=== PATIENT | male | born 1940 | race Caucasian/White ===

== ENCOUNTER → 2016-10-11 | Outpatient (CLI) | payer OTHER | LOC: MMPC 11:11 | PROVIDERS: ATTEND Nurse Practitioner | DX: J44.1 Chronic obstructive pulmonary disease with (acute) exacerbation (principal) | CPT/HCPCS: 99214 ==

== ENCOUNTER 2016-10-17 08:00 | Inpatient (IN) | payer OTHER ==
[2016-10-17] MEDS ORDERED: NORMAL SALINE 10 ML SYRINGE FLUSH IVP PRN ×2 (08:08→11:24)
[2016-10-17] MEDS ORDERED: Sodium Chloride 0.9% 1,000 ML PRIMARY IV ONE (08:08)
[2016-10-17] MEDS ORDERED: IPRATROPIUM/ALBUTEROL SULFATE 3 ML NEB NEB ONE ×2 (08:10)
--- NOTE | 2016-10-17 08:22 | PDOC ---
General Adult HPI - General Chief Complaint: Respiratory Complaint Stated Complaint: DYSPNEA, CONFUSION Date Seen by Provider: 10/17/16 Time Seen by Provider: 08:02 Source: POSITIVE: Patient Exam Limitations: POSITIVE: Clinical condition Nurse's Notes Reviewed & Considered: Yes - History of Present Illness Initial Comment: The patient is a 76-year-old male who is brought to the emergency department by his friend with complaints of increased shortness of breath and confusion. Apparently he was at coffee with his friend when he developed increased shortness of breath and seemed confused. His friend subsequently brought him here to the emergency room. The patient denies any current headache or chest pain. He is having shortness of breath. He also is shaking. He denies any history of diabetes or heart problems. He tells me that he does not take any medications however in the computer lists prednisone and cholesterol medication as well as some other supplements. He does report being on oxygen at home generally at 2 L. He does have a history of COPD. His arrived she provided further history. She stated that he did develop upper respiratory symptoms over a week ago. He was prescribed Zithromax and prednisone however he never take any of this medication. He stated that he felt like he was getting better reports for the past several days that he is really not gotten out of bed much. He did go to breakfast this morning and subsequently ended up here in the emergency room. His reports that he has had pneumonia previously in the past with very similar presentation as today with increased confusion, fever and low oxygen. Have you received a tetanus shot in the past 10 years?: No - Patient Home Medications Home Medications: Home Medications Mv-Mn/FA/Lycop/[place] 3,6,9 #3 [Men's 50+ Advanced Multivit Cp] 1 each PO DAILY tab 12/13/11 Ascorbic Acid [Vitamin C] 1 tab PO DAILY 03/02/13 Ipratropium/Albuterol Sulfate [Duoneb 2.5-0.5 Mg/3 Ml Soln] 3 ml NEB QID ml 04/07 [place]-3 Fatty Acids/Fish Oil [Fish Oil 1,000 Mg Softgel] 1 cap PO DAILY Oxygen (O2) 3 l NASAL continous #3 unit 03/02/13 Vitamin B Complex [B Complex] 1 tab PO DAILY 03/02/13 Fenofibrate Nanocrystallized [Tricor] 48 mg ORAL QD #90 tab 07/12/16 Ferrous Gluconate 1 tab PO BID #180 tab 07/12/16 Hydrochlorothiazide 1 cap PO DAILY PRN #90 cap 07/12/16 Levalbuterol Tartrate [Xopenex Hfa] 2 puff INH Q4-6H #3 puff 07/12/16 Pravastatin Sodium [Pravachol] 1 tab PO QHS #90 tab 07/12/16 Fluticasone/Vilanterol [Breo Ellipta 200-25 Mcg Inh] Sample #3 10/11/16 Umeclidinium [place] [Incruse Ellipta] Sample #4 10/11/16 - Patient Allergies Allergies/Adverse Reactions: Allergies Allergy/AdvReac Type Severity Reaction Status Date / Time testosterone AdvReac NOT Verified 10/17/16 08:13 APPLICABLE Past Medical History - heen HEENT History: Cataracts Additional HEENT History: NO TEETH Cardiovascular History: Hypertension, Hyperlipidemia Respiratory History: COPD, Sleep Apnea Gastrointestinal History: Denies History Additional Gastrointestinal History: COLON POLYPS/ HEMORRHOIDS Genitourinary History: Denies History Additional Genitourinary History: Prostate CA Endocrine History: Denies History Musculoskeletal History: Denies History Prosthesis or Implant: No Neurological History: Denies History Blood Disorders: Denies History Additional Blood Disorders History: POLYCYTHEMIA Psychiatric History: Denies History History of Sexually Transmitted Diseases: No Cancer History: Other (please comment) Cancer Treatment / Date(s) of Treatment: SURGERY History of MDRO: No History of Other Communicable Diseases: No Alcohol Use: None Substance Use Type: None Previous Surgical History: Yes Type / Date of Surgery: RADICAL PROSTATECTOMY/ RIGHT CATARACT Anesthesia Reactions: No Malignant Hyperthermia: No Significant Family History: No pertinent family hx Past Medical History Reviewed: Reviewed - No Changes ROS - Limitations ROS Limitations: Clinical Condition (Patient is awake and answers questions, he is having difficult time breathing and is somewhat confused limiting his ability to answer questions) Constitution: REPORTS: Chills Cardiovascular: DENIES: Chest Pain, Heart Palpitations, Edema Respiratory: REPORTS: Shortness Of Breath, Other (He denies cough) Neurological: REPORTS: Confusion. DENIES: Headache, Numbness, Weakness Gastrointestinal: REPORTS: Denies GI Symptoms Musculoskeletal: REPORTS: Denies MS Symptoms Eyes: REPORTS: Denies Symptoms ENT: REPORTS: Denies Symptoms Skin: DENIES: Rash General Adult Exam - General Appearance General Appearance: POSITIVE: Other (The patient is awake, he does have diffuse tremor and shaking of his upper extremities, he is somewhat confused) - HEENT HEENT: POSITIVE: Head Inspection Nml, Eyes Inspection Nml, Ears Inspection Nml, Oral/Dental Inspect. Nml, Pharynx Inspect. Nml - Neck Neck: POSITIVE: Normal Inspection. NEGATIVE: Lymphadenopathy - Respiratory Respiratory: POSITIVE: Other (He does have diminished breath sounds with tachypnea and rhonchi bilaterally, some pursed lipped breathing) - Cardiovascular Cardiovascular: POSITIVE: Regular Rate & Rhythm, No Murmur Peripheral Pulses: Dorsalis-pedis (R): 2+, Dorsalis-pedis (L): 2+ - Abdomen Abdomen: Soft: (All Quadrants), Denies Tenderness: (All Quadrants), No Distention: (All Quadrants) - Back Back: POSITIVE: Normal Inspection - Skin Skin: POSITIVE: Normal Color, No Rash - Extremities Extremity: Normal ROM: (All Extremities), Normal Inspection: (All Extremities) - Neurological / Psychological Neurological: POSITIVE: Other (No focal neurologic deficit) General Adult Progress - Results Reviewed by me Xrays/CTs/US Reviewed by me: Yes Discussed with Radiologist: Yes Radiology Findings: CT scan of his head is normal per radiologist. CT PE protocol reveals a right lower lobe a trace PE, he does have a right-sided parahilar lymph node that is enlarged which is most likely reactive however ingested recommend follow-up. Lab Results Reviewed: Yes Lab Results:: Laboratory Results 10/17/16 10/17/16 Range/Units 08:20 08:46 WBC 12.56 H (4.8-10.8) 10^3/uL RBC 4.63 L (4.70-6.10) 10^6/uL Hgb 13.1 L (14.0-18.0) g/dL Hct 41.6 L (42.0-52.0) % MCV 89.8 (80-90) FL MCH 28.3 (27-31) PG MCHC 31.5 L (33-37) g/dL RDW Std Deviation 44.1 (39-50) fL RDW Coeff of Vamshi 13.9 (11.5-14.5) % Plt Count 270 (140-350) 10*3/uL MPV 9.6 (7.4-12.2) FL Immature Gran % (Auto) 0.2 (0-5) % Neut % (Auto) 77.1 (50-80) % Lymph % (Auto) 13.6 (10-50) % [place] % (Auto) 7.8 (5-15) % Eos % (Auto) 1.1 (0-8) % Baso % (Auto) 0.2 (0-1) % Immature Gran # (Auto) 0.03 10*3/UL Neut # (Auto) 9.68 10*3/UL Lymph # (Auto) 1.71 10*3/uL [place] # (Auto) 0.98 H (0.3-0.8) 10*3/UL Eos # (Auto) 0.14 10*3/UL Baso # (Auto) 0.02 10*3/UL WBC Morphology Comment Normal morphology (NORM) Plt Morphology Comment Normal morphology (NORM) RBC Morph Comment Normal morphology (NORM) D-Dimer 0.95 H (0.00-0.59) mg/L VBG pH 7.36 (7.32-7.42) VBG pCO2 57 H (45-55) mmHg VBG HCO3 32 H (22-26) mmol/L VBG Base Excess 7 H (-2-2) MMOL/L Sodium 138 (135-145) meq/L Potassium 5.1 (3.8-5.2) meq/L Chloride 96 L (98-112) meq/L Carbon Dioxide 32 (23-33) meq/L Anion Gap 10 (5-20) BUN 27 H (7-22) mg/dL Creatinine 1.2 (0.70-1.50) mg/dL Estimated GFR (>60 ml/min/1.73m(2)) BUN/Creatinine Ratio 22.50 H (6-20) Glucose 137 H (78-110) mg/dL Calculated Osmolality 292.0 (267-292) mOsm/kg Lactic Acid 1.3 (0.70-2.10) MMOL/L Calcium 9.1 (8.7-10.7) mg/dL Magnesium 1.9 (1.6-2.4) mg/dL Total Bilirubin 0.7 (0.3-1.2) mg/dL AST 19 L (21-57) IU/L ALT 37 (21-72) IU/L Alkaline Phosphatase 84 (38-126) IU/L Troponin I < 0.012 (< 0.040) ng/mL C-Reactive Protein 3.0 H (0.0-0.9) mg/dL Total Protein 7.7 (6.1-8.0) g/dL Albumin 4.3 (3.5-4.8) g/dL Globulin 3.4 (2.50-4.10) g/dL Albumin/Globulin Ratio 1.20 L (1.3-2.0) mg/g Serum Alcohol < 10 (0-10) mg/dL - Patient's Progress MDM / ED Course: The patient was initially hypoxic in the low 80s on his 2 L of oxygen. He was turned up on the nasal cannula and did not seem to improve. He was subsequently placed on a nonrebreather and was still only in the mid-80s. He was given a DuoNeb which improved his oxygen saturations into the mid 90s. IV was established and blood cultures, lactate and venous blood gas were drawn with IV start. He was febrile on arrival and was given Tylenol. He was unable to take oral Tylenol and was given an ulcer and fibula IV. His repeat temperature was actually higher at 102.8. Patient however was actually more awake and less shaky and answering questions more poorly. Because of his confusion a head CT was done which was negative. His initial chest x-ray did not show any obvious infiltrate however CT PE protocol done secondary to elevated d-dimer shows a right lobe infiltrate consistent with pneumonia. Was given Rocephin 2 g and Zithromax 500 mg IV. In addition he was given Toradol 15 IV for fever. Did discuss these findings with the patient and spoke with Dr Feliciano who has agreed to admit the patient for further treatment. - Consult Counseled: POSITIVE: Patient, Family, RE: Lab Results, RE: Radiology Results, RE : DX Patient Care Time - Estimated PCT Patient Care Time (In Minutes): 45 Vital Signs - Recent Vital Signs Vital Signs: Vital Signs (Last 8 hours) Temp Pulse Resp BP Pulse Ox 10/17/16 10:14 102.8 F H 105 H 27 H 142/64 95 10/17/16 08:00 100.1 F H 119 H 32 H 134/39 74 - VS Reviewed Vital Signs Reviewed: Yes Discharge Clinical Impression: Pneumonia Discharge Disposition: Admit to Inpatient Condition: Fair Date Decision to Admit to Inpatient: 10/17/16 Time Decision to Admit to Inpatient: 10:25
[2016-10-17] MEDS: ACETAMINOPHEN 325 MG TABLET PO ONE ×2 (08:25→08:57)
--- NOTE | 2016-10-17 08:43 | EKG ---
[address] [place] [id number] Measurements Intervals [place] Rate: 113 P: NM: 0 QRS: 28 QRSD: 84 T: 75 QT: 285 QTc: 352 Interpretive Statements SUPRAVENTRICULAR TACHYCARDIA Some baseline interference compromises reading but P waves are variable shaped despite regular narrow complex rhythm ABNORMAL RHYTHM ECG Compared to ECG 04/28/2013 18:03:09 Sinus tachycardia no longer present Electronically Signed On 10-17-16 13:43:58 MST by Mike Mccarthy MD [email or web address]
[2016-10-17 08:48] LABS: BASOPHILS # (AUTO) 0.02 10*3/UL; BASOPHILS % (AUTO) 0.2 % (0-1); EOSINOPHILS % (AUTO) 1.1 % (0-8); HEMATOCRIT 41.6 % (42.0-52.0); HEMOGLOBIN 13.1 g/dL (14.0-18.0); IMM GRAN % (AUTO) 0.2 % (0-5); IMM GRAN# (AUTO) 0.03 10*3/UL; LYMPHOCYTES # (AUTO) 1.71 10*3/uL; LYMPHOCYTES % (AUTO) 13.6 % (10-50); MEAN CORPUSCULAR HEMOGLOBIN 28.3 PG (27-31); MEAN CORPUSCULAR HGB CONC 31.5 g/dL (33-37); MEAN PLATELET VOLUME 9.6 FL (7.4-12.2); MONOCYTES # (AUTO) 0.98 10*3/UL (0.3-0.8); MONOCYTES % (AUTO) 7.8 % (5-15); NEUTROPHILS # (AUTO) 9.68 10*3/UL; NEUTROPHILS % (AUTO) 77.1 % (50-80); RDW COEFFICIENT OF VARIATION 13.9 % (11.5-14.5); RED BLOOD COUNT 4.63 10^6/uL (4.70-6.10); WHITE BLOOD COUNT 12.56 10^3/uL (4.8-10.8)
[2016-10-17 08:56] LABS: PLATELET MORPHOLOGY COMMENT NORMAL MORPHOLOGY (NORM)
[2016-10-17 08:58] LABS: ASPARTATE AMINO TRANSFERASE 19 IU/L (21-57); BILIRUBIN,TOTAL 0.7 mg/dL (0.3-1.2); BLOOD UREA NITROGEN 27 mg/dL (7-22); CALCIUM 9.1 mg/dL (8.7-10.7); CHLORIDE 96 meq/L (98-112); CREATININE 1.2 mg/dL (0.70-1.50); GLUCOSE 137 mg/dL (78-110); LACTATE 1.3 MMOL/L (0.70-2.10); MAGNESIUM 1.9 mg/dL (1.6-2.4); POTASSIUM 5.1 meq/L (3.8-5.2); SODIUM 138 meq/L (135-145); TOTAL PROTEIN 7.7 g/dL (6.1-8.0)
[2016-10-17 09:01] LABS: SERUM ALCOHOL < 10 mg/dL (0-10)
[2016-10-17] MEDS ORDERED: ACETAMINOPHEN IV ONE (09:05)
--- NOTE | 2016-10-17 09:44 | DI ---
XR CXR 1VW,10/17/2016 8:22 AM: Clinical History: Hypoxia. Previous Exam: None at this facility. Findings: 2 views of the chest are obtained, and demonstrate airspace disease within the right lower lobe. There is no evidence of pleural effusion. There are some degenerative changes of the acromioclavicular joints. The cardiomediastinum is unremarkable. Impression: Airspace disease within the right lower lung base most consistent with a right lower lobe pneumonia.
[2016-10-17] MEDS ORDERED: cefTRIAXone Inj 2 GM in Sodium Chloride 0.9% 100 ML IV ONE (10:17)
[2016-10-17] MEDS ORDERED: KETOROLAC 15 MG/1 ML VIAL IVP ONE (10:17)
--- NOTE | 2016-10-17 10:34 | DI ---
CT HEAD SCAN WITHOUT IV CONTRAST, 10/17/2016 9:01 AM : Clinical History: Mental status changes. Previous Exam: None at this facility. Scans are obtained from the foramen magnum to the vertex without IV contrast. The 4th, 3rd, and lateral ventricles are of normal size, shape, position, and contour. There are no abnormal areas of increased or decreased density. There is no intracranial hemorrhage. Bone window evaluation is normal. The paranasal sinuses are normal. READING: Normal non contrast CT head scan for age.
--- NOTE | 2016-10-17 10:39 | DI ---
CT CTA CHEST NONCORONARY W/WO,10/17/2016 9:06 AM: Clinical History: Mental status changes. Previous Exam: None at this facility. Findings: Multiple helically acquired CT images are obtained through the chest following the intravenous admini stration of 75 cc of Isovue 300, and demonstrates no evidence of filling defect to suggest pulmonary embolism. There is some significant streak artifact which limits evaluation. There are some prominent pretracheal lymph nodes the largest of which measures 1.9 x 1.1 cm. There is also a large right hilar mass measuring 2.4 cm. There is airspace disease within the right lung base as well. Calcified granulomas are seen within th e liver and spleen. There is diffuse fatty infiltration of the liver. Impression: Right lower lobe pneumonia. No evidence of pulmonary embolism.
[2016-10-17] MEDS ORDERED: ONDANSETRON 4 MG/2 ML VIAL IVP PRN (11:24)
[2016-10-17] MEDS ORDERED: FENOFIBRATE NANOCRYSTALLIZED 48 MG ORAL SCH (11:24)
--- NOTE | 2016-10-17 12:41 | PDOC ---
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 His history is obtained only from him, but from his , and his friend that he drinks coffee with daily. Apparently, he was late for coffee, and when he arrived, the patient was shaking with what sounds like rigors and he was chilled. His friend took him back home, and his said that he needed to go directly to the hospital and would not even let him in the house. Upon arrival to the hospital, he was found to have a fever of greater than 102, and he was found to have a right lower lobe pneumonia. The patient was confused and disoriented, thought he was born in the 1980s, and doesn't recall any of these events earlier this morning. The patient is on about 3-4 L per nasal cannula of oxygen daily. He does breathing therapies as well. He denies any nausea or vomiting. I could not get any exacerbating factors out of the patient except as follows. He recently had a clinic visit on the , a routine follow-up visit in which the patient also complained of having a persistent cold. He was prescribed Zithromax and steroids at that visit but did not take any. He wanted to let his body try to heal this pneumonia better. He does not smoke. He got the Prevnar vaccine in the past 2 years. I was able to confirm that with clinic notes. Past Medical History Medical History: 1. COPD, normally on 3-4 L per nasal cannula oxygen, status post stem cell transplant therapy in [place]. 2. Hypertension. 3. History of prostate cancer status post radical prostatectomy. 4. Reportedly, polycythemia. 5. Obstructive sleep apnea. 6. Some skin cancers. Surgical History: Radical prostatectomy Pertinent Family History: Father of a massive myocardial infarction. The patient's mother is still alive at 96. Past Social History: Patient did smoke in the past, quit. for 33 years. This is his second marriage. Retired and lives in [place], [place]. Does not drink alcohol. Tobacco Use: Former Smoker Substance Use Type: None Alcohol Use: None Medication / Allergies Home Medications: Home Medications Medication Instructions Recorded Confirmed Type Mv-Mn/FA/Lycop/[place] 3,6,9 #3 1 each PO DAILY tab 12/13/11 10/17/16 History [Men's 50+ Advanced Multivit Cp] Ascorbic Acid [Vitamin C] 1 tab PO DAILY 03/02/13 10/17/16 History Ipratropium/Albuterol Sulfate 3 ml NEB QID ml 03/02/13 10/17/16 History [Duoneb 2.5-0.5 Mg/3 Ml Soln] [place]-3 Fatty Acids/Fish Oil [Fish 1 cap PO DAILY 03/02/13 10/17/16 History Oil 1,000 Mg Softgel] Oxygen (O2) 3 l NASAL continous #3 unit 03/02/13 02/01/14 History Vitamin B Complex [B Complex] 1 tab PO DAILY 03/02/13 10/17/16 History Fenofibrate Nanocrystallized 48 mg ORAL QD #90 tab 07/12/16 10/17/16 Clinic [Tricor] Ferrous Gluconate 1 tab PO BID #180 tab 07/12/16 10/17/16 Clinic Hydrochlorothiazide 1 cap PO DAILY PRN #90 cap 07/12/16 10/17/16 Clinic Levalbuterol Tartrate [Xopenex Hfa] 2 puff INH Q4-6H #3 puff 07/12/16 10/17/16 Clinic Pravastatin Sodium [Pravachol] 1 tab PO QHS #90 tab 07/12/16 10/17/16 Clinic Fluticasone/Vilanterol [Breo #3 10/11/16 Clinic Ellipta 200-25 Mcg Inh] Sample Umeclidinium [place] [Incruse #4 10/11/16 Clinic Ellipta] Sample Allergies/Adverse Reactions: Allergies Allergy/AdvReac Type Severity Reaction Status Date / Time testosterone AdvReac NOT Verified 10/17/16 08:13 APPLICABLE Review of Systems - Constitutional Constitutional: REPORTS: Fever/Chills, Malaise, Recent Illness - Respiratory Respiratory: REPORTS: Cough, Dyspnea At Rest, Dyspnea with Exertion, See HPI - Cardiovascular Cardiovascular: REPORTS: Negative System Review - Gastrointestinal Gastrointestinal / Abdominal: REPORTS: Negative System Review - Genitourinary Genitourinary: REPORTS: Other (History of prostate cancer.) - Musculoskeletal Musculoskeletal: REPORTS: Negative System Review - Hematlogic / Lymphatic Hematologic / Lymphatic: REPORTS: Other (History of polycythemia) - Neurological Neurologic: REPORTS: Negative System Review - Psychiatric Psychiatric: DENIES: Anhedonia, Anxiety, Depressed, Hopelessness, Hospitalization, Negative System Review, Other, Panic, Sadness, See HPI, Suicidality, Tearfullness Exam - Vitals Vital Signs: Vital Signs Temperature 102.8 F Temperature Source Temporal Artery Scan Pulse Rate 105 Respiratory Rate 24 Blood Pressure 142/64 Pulse Ox 92 Oxygen Flow Rate 8L Oxygen Delivery Method Room Air Height 5 ft 9 in Weight 220 lb 12.8 oz - General General Appearance: POSITIVE: No Acute Distress, Cooperative - Head Head Exam: POSITIVE: Normal Inspection, Normocephalic, Atraumatic - Eye Eye Exam: POSITIVE: No Scleral Icterus - ENT ENT Exam: POSITIVE: Mucous Membranes Dry - Neck Neck Exam: POSITIVE: Normal Inspection, No Tenderness, No Thyromegaly - Respiratory Respiratory Exam: POSITIVE: Breathing Non Labored, Normal to Percussion and Palpation, Decreased Breath Sounds - Cardiovascular Cardiovascular Exam: POSITIVE: RRR, No Murmur, No Clicks, No Gallops, No Rubs, No JVD - GI/Abdominal GI/Abdominal Exam: POSITIVE: Normal Bowel Sounds, Non Tender, Non Distended, Soft - Rectal Rectal Exam: POSITIVE: Deferred - External Exam: POSITIVE: Deferred Exam: POSITIVE: Deferred - Extremities Extremities Exam: POSITIVE: Normal Inspection, No Edema Present, No Cyanosis Present - Back Back Exam: POSITIVE: Normal Inspection, No CVA Tenderness - Neurological Neurological Exam: POSITIVE: Alert, Oriented x 3 - Psychiatric Psychiatric Exam: POSITIVE: Normal Affect, Normal Mood - Integumentary Integumentary Exam: POSITIVE: Normal Color, Warm, Dry, Intact Results - Labs CBC and BMP: 10/17/16 08:46 10/17/16 08:46 Labs - Last 24 Hours: Laboratory Results 10/17/16 10/17/16 Range/Units 08:20 08:46 WBC 12.56 H (4.8-10.8) 10^3/uL RBC 4.63 L (4.70-6.10) 10^6/uL Hgb 13.1 L (14.0-18.0) g/dL Hct 41.6 L (42.0-52.0) % MCV 89.8 (80-90) FL MCH 28.3 (27-31) PG MCHC 31.5 L (33-37) g/dL RDW Std Deviation 44.1 (39-50) fL RDW Coeff of Vamshi 13.9 (11.5-14.5) % Plt Count 270 (140-350) 10*3/uL MPV 9.6 (7.4-12.2) FL Immature Gran % (Auto) 0.2 (0-5) % Neut % (Auto) 77.1 (50-80) % Lymph % (Auto) 13.6 (10-50) % [place] % (Auto) 7.8 (5-15) % Eos % (Auto) 1.1 (0-8) % Baso % (Auto) 0.2 (0-1) % Immature Gran # (Auto) 0.03 10*3/UL Neut # (Auto) 9.68 10*3/UL Lymph # (Auto) 1.71 10*3/uL [place] # (Auto) 0.98 H (0.3-0.8) 10*3/UL Eos # (Auto) 0.14 10*3/UL Baso # (Auto) 0.02 10*3/UL WBC Morphology Comment Normal morphology (NORM) Plt Morphology Comment Normal morphology (NORM) RBC Morph Comment Normal morphology (NORM) D-Dimer 0.95 H (0.00-0.59) mg/L VBG pH 7.36 (7.32-7.42) VBG pCO2 57 H (45-55) mmHg VBG HCO3 32 H (22-26) mmol/L VBG Base Excess 7 H (-2-2) MMOL/L Sodium 138 (135-145) meq/L Potassium 5.1 (3.8-5.2) meq/L Chloride 96 L (98-112) meq/L Carbon Dioxide 32 (23-33) meq/L Anion Gap 10 (5-20) BUN 27 H (7-22) mg/dL Creatinine 1.2 (0.70-1.50) mg/dL Estimated GFR (>60 ml/min/1.73m(2)) BUN/Creatinine Ratio 22.50 H (6-20) Glucose 137 H (78-110) mg/dL Calculated Osmolality 292.0 (267-292) mOsm/kg Lactic Acid 1.3 (0.70-2.10) MMOL/L Calcium 9.1 (8.7-10.7) mg/dL Magnesium 1.9 (1.6-2.4) mg/dL Total Bilirubin 0.7 (0.3-1.2) mg/dL AST 19 L (21-57) IU/L ALT 37 (21-72) IU/L Alkaline Phosphatase 84 (38-126) IU/L Troponin I < 0.012 (< 0.040) ng/mL C-Reactive Protein 3.0 H (0.0-0.9) mg/dL Total Protein 7.7 (6.1-8.0) g/dL Albumin 4.3 (3.5-4.8) g/dL Globulin 3.4 (2.50-4.10) g/dL Albumin/Globulin Ratio 1.20 L (1.3-2.0) mg/g Serum Alcohol < 10 (0-10) mg/dL - EKG Data -: EKG Interpreted by Me Rate: Tachycardia EKG Shows Normal: Sinus Rhythm - Imaging Status: Image Reviewed by Me (Chest x-ray, on my view shows a right-sided pneumonia. CT scan, on my view shows a right-sided pneumonia that there is fairly diffuse. I also think that it's consistent with emphysema. CT scan of the head was done and on my view no evidence of acute bleed.) Assessment and Plan - Patient Problems (1) Pneumonia Current Visit: Yes Status: Acute (2) COPD exacerbation Current Visit: Yes Status: Acute (3) Hypertension Current Visit: Yes Status: Acute Qualifiers: Hypertension type: essential hypertension Qualified Description: Essential hypertension Qualifier Code(s): (I10) Essential (primary) hypertension (4) History of prostate cancer Current Visit: Yes Status: Acute - Assessment / Plan Additional Assessment/Plan Details: This patient has a class for pneumonia by pneumonia severity index with a score of 127, and his CURB65 score is 2 with the mortality of 30 days of 13%. Rocephin and Zithromax. I would like to avoid Levaquin if possible due to confusion with fevers already. Tylenol for fever. He is artery had Pneumovax but I will go ahead and give the flu vaccine today. Breathing therapies and steroids for the COPD exacerbation component as well. I think given the severity of his pneumonia, this patient will require 7 days of antibiotic therapy. Luckily, the patient does not appear septic. Has preserved blood pressures. Normal lactic acid level. IV fluids as patient does appear to be mildly dry. I tried to discuss CPR status, the patient is full code for now, and we'll leave him to think about the procedure as I described to him in detail. I discussed the above plan with patient and his family and they all agreed.
[2016-10-17] MEDS ORDERED: ACETAMINOPHEN 325 MG TABLET PO PRN (12:50)
[2016-10-17] MEDS: methylPREDNISolone 125 MG/2 ML VIAL IVP SCH ×2 (13:14→20:59)
[2016-10-17] MEDS: IPRATROPIUM/ALBUTEROL SULFATE 3 ML NEB NEB SCH ×3 (13:37→19:05)
[2016-10-17] MEDS ORDERED: Influenza 16-17 Vaccine(4yrs+) 45 MCG/0.5 ML SYRINGE IM ONE (18:10)
[2016-10-17] MEDS ORDERED: Pravastatin 80mg Tab PO SCH (21:00)
[2016-10-17] MEDS: ALBUTEROL SULFATE 2.5 MG/3 ML NEB PRN (23:40)
[2016-10-18] MEDS: methylPREDNISolone 125 MG/2 ML VIAL IVP SCH ×4 (00:41→20:12)
[2016-10-18 06:04] LABS: BASOPHILS # (AUTO) 0.01 10*3/UL; BASOPHILS % (AUTO) 0.1 % (0-1); EOSINOPHILS % (AUTO) 0 % (0-8); HEMATOCRIT 37.9 % (42.0-52.0); HEMOGLOBIN 11.9 g/dL (14.0-18.0); IMM GRAN % (AUTO) 0.3 % (0-5); IMM GRAN# (AUTO) 0.04 10*3/UL; LYMPHOCYTES % (AUTO) 7.1 % (10-50); MEAN CORPUSCULAR HEMOGLOBIN 28.1 PG (27-31); MEAN CORPUSCULAR HGB CONC 31.4 g/dL (33-37); MEAN PLATELET VOLUME 9.6 FL (7.4-12.2); MONOCYTES % (AUTO) 2.4 % (5-15); NEUTROPHILS # (AUTO) 11.35 10*3/UL; NEUTROPHILS % (AUTO) 90.1 % (50-80); RDW COEFFICIENT OF VARIATION 13.7 % (11.5-14.5); RED BLOOD COUNT 4.23 10^6/uL (4.70-6.10)
[2016-10-18 06:13] LABS: CALCIUM 8.4 mg/dL (8.7-10.7); POTASSIUM 4.5 meq/L (3.8-5.2)
[2016-10-18 06:16] LABS: PLATELET MORPHOLOGY COMMENT NORMAL MORPHOLOGY (NORM)
[2016-10-18] MEDS: IPRATROPIUM/ALBUTEROL SULFATE 3 ML NEB NEB SCH ×4 (06:31→18:54)
[2016-10-18] MEDS: ENOXAPARIN SODIUM 40 MG/0.4 ML SYRINGE SUBCUT SCH (08:53)
[2016-10-18] MEDS: ASCORBIC ACID 500 MG TABLET PO SCH (08:53)
[2016-10-18] MEDS: FENOFIBRATE NANOCRYSTALLIZED 48 MG ORAL SCH (08:53)
[2016-10-18] MEDS: Pravastatin 80mg Tab PO SCH (09:46)
[2016-10-18 10:47] LABS: HEMOGLOBIN A1C 6.33 % (4.2-6.0); MEAN BLOOD GLUCOSE (CALC) 124.789 mg/dL
--- NOTE | 2016-10-18 12:06 | PDOC(PROG) ---
Date and Time of Service: 10/18/2016, 1205 Interval History: Feels much better. Breathing is better. Mental status is improved. He had questions as to why his pneumonia cause such significant chills and rigors, but luckily, no evidence of sepsis. I think this vaccine was effective at preventing a worsened pneumonia. No nausea or vomiting. Objective : Data - Labs CBC and BMP: 10/18/16 05:40 10/18/16 05:40 Labs - Last 24 Hours: Laboratory Results 10/18/16 10/18/16 Range/Units 05:40 10:36 WBC 12.60 H (4.8-10.8) 10^3/uL RBC 4.23 L (4.70-6.10) 10^6/uL Hgb 11.9 L (14.0-18.0) g/dL Hct 37.9 L (42.0-52.0) % MCV 89.6 (80-90) FL MCH 28.1 (27-31) PG MCHC 31.4 L (33-37) g/dL RDW Std Deviation 43.6 (39-50) fL RDW Coeff of Vamshi 13.7 (11.5-14.5) % Plt Count 213 (140-350) 10*3/uL MPV 9.6 (7.4-12.2) FL Immature Gran % (Auto) 0.3 (0-5) % Neut % (Auto) 90.1 H (50-80) % Lymph % (Auto) 7.1 L (10-50) % [place] % (Auto) 2.4 L (5-15) % Eos % (Auto) 0 (0-8) % Baso % (Auto) 0.1 (0-1) % Immature Gran # (Auto) 0.04 10*3/UL Neut # (Auto) 11.35 10*3/UL Lymph # (Auto) 0.90 10*3/uL [place] # (Auto) 0.30 (0.3-0.8) 10*3/UL Eos # (Auto) 0 10*3/UL Baso # (Auto) 0.01 10*3/UL WBC Morphology Comment Normal morphology (NORM) Plt Morphology Comment Normal morphology (NORM) RBC Morph Comment Normal morphology (NORM) Sodium 141 (135-145) meq/L Potassium 4.5 (3.8-5.2) meq/L Chloride 106 (98-112) meq/L Carbon Dioxide 26 (23-33) meq/L Anion Gap 9 (5-20) BUN 24 H (7-22) mg/dL Creatinine 1.0 (0.70-1.50) mg/dL Estimated GFR (>60 ml/min/1.73m(2)) BUN/Creatinine Ratio 24.00 H (6-20) Glucose 230 H (78-110) mg/dL Mean Blood Glucose 124.789 mg/dL Hemoglobin A1c 6.33 H (4.2-6.0) % Calculated Osmolality 302.0 H (267-292) mOsm/kg Calcium 8.4 L (8.7-10.7) mg/dL Objective : Exam - General General Appearance: No Acute Distress, Cooperative Additional General Exam Details: Vital Signs - Last Taken Temperature 97 F 10/18/16 11:25 Pulse Rate 103 H 10/18/16 11:25 Respiratory Rate 20 10/18/16 11:25 Blood Pressure 134/54 10/18/16 11:25 Pulse Ox 90 10/18/16 11:25 Currently on 4 L per nasal cannula - Eye Eye Exam: No Scleral Icterus - Respiratory Respiratory Exam: Breathing Non Labored, Decreased Breath Sounds (But clear today with no coarse breath sounds) - Cardiovascular Cardiovascular Exam: RRR, No Murmur, No Clicks, No Gallops, No Rubs, JVD - GI/Abdominal GI/Abdominal Exam: Normal Bowel Sounds, Non Tender, Non Distended, Soft - Extremities Extremities Exam: No Clubbing Present, No Edema Present, No Cyanosis Present - Neurological Neurological Exam: Alert, Oriented x 3, No Facial Droop, Speech Intact / Clear, Moves All Extremities Equally Assessment and Plan - Patient Problems (1) Pneumonia Current Visit: Yes Status: Acute Comment: On day 2 of 7 for antibiotics. (2) COPD exacerbation Current Visit: Yes Status: Acute (3) Hypertension Current Visit: Yes Status: Acute Qualifiers: Hypertension type: essential hypertension Qualified Description: Essential hypertension Qualifier Code(s): (I10) Essential (primary) hypertension (4) History of prostate cancer Current Visit: Yes Status: Acute (5) Hyperglycemia Current Visit: Yes Status: Acute Comment: The patient is likely in the early stages of diabetes given a hemoglobin A1c of 6.33. I think it needs to be repeated. Steroids are going to cause some stress dose hyperglycemia. He probably can diet control this at this point. - Assessment / Plan Additional Assessment/Plan Details: Continue antibiotics IV. Stop IV fluids and telemetry monitoring. If he looks as good tomorrow, is afebrile, hopefully discharge tomorrow with course of antibiotics. Taper steroids. We'll get dietary consult to discuss diabetic diet.
[2016-10-18] MEDS: cefTRIAXone Inj 2 GM in Sodium Chloride 0.9% 100 ML IV SCH (12:45)
[2016-10-18] MEDS ORDERED: Influenza 16-17 Vaccine(4yrs+) 45 MCG/0.5 ML SYRINGE IM ONE ×2 (20:08→20:12)
[2016-10-19] MEDS: ALBUTEROL SULFATE 2.5 MG/3 ML NEB PRN (04:43)
[2016-10-19] MEDS: IPRATROPIUM/ALBUTEROL SULFATE 3 ML NEB NEB SCH ×2 (06:29→10:32)
[2016-10-19 07:37] VITALS: RESP 20
[2016-10-19] MEDS ORDERED: ACETAMINOPHEN 500 MG TABLET PO PRN (07:44)
[2016-10-19] MEDS: ENOXAPARIN SODIUM 40 MG/0.4 ML SYRINGE SUBCUT SCH (08:07)
[2016-10-19] MEDS: methylPREDNISolone 125 MG/2 ML VIAL IVP SCH (08:08)
[2016-10-19] MEDS: ASCORBIC ACID 500 MG TABLET PO SCH (08:08)
[2016-10-19] MEDS: Pravastatin 80mg Tab PO SCH (08:08)
[2016-10-19] MEDS: FENOFIBRATE NANOCRYSTALLIZED 48 MG ORAL SCH (08:08)
[2016-10-19 11:34] VITALS: TEMP 97.3
[2016-10-19] MEDS: cefTRIAXone Inj 2 GM in Sodium Chloride 0.9% 100 ML IV SCH (11:56)
--- NOTE | 2016-10-19 14:12 | DCSUMMARY ---
Hospitalization Summary Admit Date: 10/17/16 Discharge Date: 10/19/16 Primary Diagnosis:: pneumonia, community-acquired Hospital Course: This very pleasant 76-year-old male with emphysema, status post stem cell transplant within the last 6-8 months or so who came in with symptoms of confusion, fever, and findings of a right-sided pneumonia. He was placed on antibiotics, IV fluids, oxygen therapy, breathing therapies, and improved. Her son his treatment, he was able to get down to his baseline oxygen, his mental status significantly improved, and he had no evidence of sepsis. He had already had Pneumovax and refuses the flu vaccine stating that he had it done in the clinic. His other medical problems remain stable through the hospital stay, although I will note that his blood sugars were elevated and I did do a hemoglobin A1c and he has a hemoglobin A1c value consistent with early diabetes. This did not appear to be stress induced hyperglycemia. I think he can diet control and we got him a dietary consult here in the hospital. It is motivated to make dietary changes. Today, the patient feels significantly better, his breathing is better, he is coughing up more phlegm, is afebrile, has no nausea or vomiting, and he wants to go home. Assessment and Plan: 1. As per discharge assessments noted 2. Disposition: Patient is discharged home. 3. Condition on discharge, stable and improved. 4. Diet: regular diet 5. Activities: resume normal activities 6. Follow-Up: 1. Dr. Llanes in one week 2. Chest x-ray in 6-8 weeks (6 weeks ordered) to recheck pneumonia 7. Medications at the Time of Discharge: Home Medications Medication Instructions Recorded Confirmed Type Mv-Mn/FA/Lycop/[place] 3,6,9 #3 1 each PO DAILY tab 12/13/11 10/17/16 History [Men's 50+ Advanced Multivit Cp] Ascorbic Acid [Vitamin C] 1 tab PO DAILY 03/02/13 10/17/16 History Ipratropium/Albuterol Sulfate 3 ml NEB QID ml 03/02/13 10/17/16 History [Duoneb 2.5-0.5 mg/3 ml Soln] [place]-3 Fatty Acids/Fish Oil [Fish 1 cap PO DAILY 03/02/13 10/17/16 History Oil 1,000 mg Softgel] Oxygen (O2) 3 l NASAL continous #3 unit 03/02/13 02/01/14 History Vitamin B Complex [B Complex] 1 tab PO DAILY 03/02/13 10/17/16 History Fenofibrate Nanocrystallized 48 mg ORAL QD #90 tab 07/12/16 10/17/16 Clinic [[place]] Ferrous Gluconate 1 tab PO BID #180 tab 07/12/16 10/17/16 Clinic Hydrochlorothiazide 1 cap PO DAILY PRN #90 cap 07/12/16 10/17/16 Clinic Levalbuterol Tartrate [XOPENEX HFA] 2 puff INH Q4-6H #3 puff 07/12/16 10/17/16 Clinic Pravastatin Sodium [Pravachol] 1 tab PO QHS #90 tab 07/12/16 10/17/16 Clinic Fluticasone/Vilanterol [Breo #3 10/11/16 Clinic Ellipta 200-25 Mcg INH] Sample Umeclidinium [place] [Incruse #4 10/11/16 Clinic Ellipta] Sample Azithromycin [Zithromax] 250 mg PO DAILY #4 tab 10/19/16 Rx Cefuroxime Axetil [Ceftin] 500 mg PO BID #8 tablet 10/19/16 Rx Prednisone 10 mg PO DAILY #30 tab 10/19/16 Rx He will receive a total of 7 days of therapy for his pneumonia and a prednisone taper over the next 12. 8. Time, care, counseling and coordination of care for this discharge is less than 30 minutes. Exam - Vitals Vital Signs: Vital Signs Temperature 97.3 F Temperature Source Temporal Artery Scan Pulse Rate [Apical] 92 Pulse Rate [Pulse Oximeter] 103 Pulse Rate 103 Respiratory Rate 20 Blood Pressure [Left Arm] 147/70 Blood Pressure 142/64 Pulse Ox 93 Oxygen Flow Rate 4 Oxygen Delivery Method Nasal Cannula Height 5 ft 9 in Weight 220 lb 12.8 oz - General General Appearance: POSITIVE: No Acute Distress, Cooperative - Eye Eye Exam: POSITIVE: No Scleral Icterus - Respiratory Respiratory Exam: POSITIVE: Breathing Non Labored, Decreased Breath Sounds ( Improved airflow through the hospital stay.) - Cardiovascular Cardiovascular Exam: POSITIVE: RRR, No Murmur, No Clicks, No Gallops, No Rubs, No JVD - GI/Abdominal GI/Abdominal Exam: POSITIVE: Normal Bowel Sounds, Non Tender, Non Distended, Soft - Extremities Extremities Exam: POSITIVE: No Clubbing Present, No Edema Present, No Cyanosis Present - Neurological Neurological Exam: POSITIVE: Alert, Oriented x 3, No Facial Droop, Speech Intact / Clear, Moves All Extremities Equally Data Perinent Studies: Laboratory Results 10/17/16 10/17/16 10/18/16 Range/Units 08:20 08:46 05:40 WBC 12.56 H 12.60 H (4.8-10.8) 10^3/uL RBC 4.63 L 4.23 L (4.70-6.10) 10^6/uL Hgb 13.1 L 11.9 L (14.0-18.0) g/dL Hct 41.6 L 37.9 L (42.0-52.0) % MCV 89.8 89.6 (80-90) FL MCH 28.3 28.1 (27-31) PG MCHC 31.5 L 31.4 L (33-37) g/dL RDW Std Deviation 44.1 43.6 (39-50) fL RDW Coeff of Vamshi 13.9 13.7 (11.5-14.5) % Plt Count 270 213 (140-350) 10*3/uL MPV 9.6 9.6 (7.4-12.2) FL Immature Gran % (Auto) 0.2 0.3 (0-5) % Neut % (Auto) 77.1 90.1 H (50-80) % Lymph % (Auto) 13.6 7.1 L (10-50) % [place] % (Auto) 7.8 2.4 L (5-15) % Eos % (Auto) 1.1 0 (0-8) % Baso % (Auto) 0.2 0.1 (0-1) % Immature Gran # (Auto) 0.03 0.04 10*3/UL Neut # (Auto) 9.68 11.35 10*3/UL Lymph # (Auto) 1.71 0.90 10*3/uL [place] # (Auto) 0.98 H 0.30 (0.3-0.8) 10*3/UL Eos # (Auto) 0.14 0 10*3/UL Baso # (Auto) 0.02 0.01 10*3/UL WBC Morphology Comment Normal morphology Normal morphology (NORM) Plt Morphology Comment Normal morphology Normal morphology (NORM) RBC Morph Comment Normal morphology Normal morphology (NORM) D-Dimer 0.95 H (0.00-0.59) mg/L VBG pH 7.36 (7.32-7.42) VBG pCO2 57 H (45-55) mmHg VBG HCO3 32 H (22-26) mmol/L VBG Base Excess 7 H (-2-2) MMOL/L Sodium 138 141 (135-145) meq/L Potassium 5.1 4.5 (3.8-5.2) meq/L Chloride 96 L 106 (98-112) meq/L Carbon Dioxide 32 26 (23-33) meq/L Anion Gap 10 9 (5-20) BUN 27 H 24 H (7-22) mg/dL Creatinine 1.2 1.0 (0.70-1.50) mg/dL Estimated GFR (>60 ml/min/1.73m(2)) BUN/Creatinine Ratio 22.50 H 24.00 H (6-20) Glucose 137 H 230 H (78-110) mg/dL Mean Blood Glucose mg/dL Hemoglobin A1c (4.2-6.0) % Calculated Osmolality 292.0 302.0 H (267-292) mOsm/kg Lactic Acid 1.3 (0.70-2.10) MMOL/L Calcium 9.1 8.4 L (8.7-10.7) mg/dL Magnesium 1.9 (1.6-2.4) mg/dL Total Bilirubin 0.7 (0.3-1.2) mg/dL AST 19 L (21-57) IU/L ALT 37 (21-72) IU/L Alkaline Phosphatase 84 (38-126) IU/L Troponin I < 0.012 (< 0.040) ng/mL C-Reactive Protein 3.0 H (0.0-0.9) mg/dL Total Protein 7.7 (6.1-8.0) g/dL Albumin 4.3 (3.5-4.8) g/dL Globulin 3.4 (2.50-4.10) g/dL Albumin/Globulin Ratio 1.20 L (1.3-2.0) mg/g Serum Alcohol < 10 (0-10) mg/dL 10/18/16 Range/Units 10:36 WBC (4.8-10.8) 10^3/uL RBC (4.70-6.10) 10^6/uL Hgb (14.0-18.0) g/dL Hct (42.0-52.0) % MCV (80-90) FL MCH (27-31) PG MCHC (33-37) g/dL RDW Std Deviation (39-50) fL RDW Coeff of Vamshi (11.5-14.5) % Plt Count (140-350) 10*3/uL MPV (7.4-12.2) FL Immature Gran % (Auto) (0-5) % Neut % (Auto) (50-80) % Lymph % (Auto) (10-50) % [place] % (Auto) (5-15) % Eos % (Auto) (0-8) % Baso % (Auto) (0-1) % Immature Gran # (Auto) 10*3/UL Neut # (Auto) 10*3/UL Lymph # (Auto) 10*3/uL [place] # (Auto) (0.3-0.8) 10*3/UL Eos # (Auto) 10*3/UL Baso # (Auto) 10*3/UL WBC Morphology Comment (NORM) Plt Morphology Comment (NORM) RBC Morph Comment (NORM) D-Dimer (0.00-0.59) mg/L VBG pH (7.32-7.42) VBG pCO2 (45-55) mmHg VBG HCO3 (22-26) mmol/L VBG Base Excess (-2-2) MMOL/L Sodium (135-145) meq/L Potassium (3.8-5.2) meq/L Chloride (98-112) meq/L Carbon Dioxide (23-33) meq/L Anion Gap (5-20) BUN (7-22) mg/dL Creatinine (0.70-1.50) mg/dL Estimated GFR (>60 ml/min/1.73m(2)) BUN/Creatinine Ratio (6-20) Glucose (78-110) mg/dL Mean Blood Glucose 124.789 mg/dL Hemoglobin A1c 6.33 H (4.2-6.0) % Calculated Osmolality (267-292) mOsm/kg Lactic Acid (0.70-2.10) MMOL/L Calcium (8.7-10.7) mg/dL Magnesium (1.6-2.4) mg/dL Total Bilirubin (0.3-1.2) mg/dL AST (21-57) IU/L ALT (21-72) IU/L Alkaline Phosphatase (38-126) IU/L Troponin I (< 0.040) ng/mL C-Reactive Protein (0.0-0.9) mg/dL Total Protein (6.1-8.0) g/dL Albumin (3.5-4.8) g/dL Globulin (2.50-4.10) g/dL Albumin/Globulin Ratio (1.3-2.0) mg/g Serum Alcohol (0-10) mg/dL Patient Problems - Patient Problem List (1) Pneumonia Current Visit: Yes Status: Acute (2) COPD exacerbation Current Visit: Yes Status: Acute (3) Hypertension Current Visit: Yes Status: Acute Qualifiers: Hypertension type: essential hypertension Qualified Description: Essential hypertension Qualifier Code(s): (I10) Essential (primary) hypertension (4) History of prostate cancer Current Visit: Yes Status: Acute (5) Hyperglycemia Current Visit: Yes Status: Acute
== END 2016-10-19 14:36 | disposition home or self-care (01) | DRG 194 ==
LOC: ER 08:00 → MED/SURG 10:47
PROVIDERS: ADMIT Family Medicine; ATTEND Family Medicine
DX: R41.0 Disorientation, unspecified (principal); J18.9 Pneumonia, unspecified organism; J18.8 Other pneumonia, unspecified organism; J44.1 Chronic obstructive pulmonary disease with (acute) exacerbation; I10 Essential (primary) hypertension; Z85.46 Personal history of malignant neoplasm of prostate; R73.9 Hyperglycemia, unspecified
CPT/HCPCS: 36415; 70450; 71010; 71275; 80053; 80320; 82803; 82948; 83605; 83735; 84484; 85025; 85379; 86140; 87040; 87804; 93005; 93010; 94640; 96365; 96375; 99284 ×2; J0131; J0456; J7620; 80048; 83036; 90656; 94761; J0696; J1650; J1885; J7030; J7050

== ENCOUNTER → 2016-10-25 | Outpatient (CLI) | payer OTHER | LOC: MMPC 11:11 | PROVIDERS: ATTEND Nurse Practitioner | DX: J18.1 Lobar pneumonia, unspecified organism (principal); J44.1 Chronic obstructive pulmonary disease with (acute) exacerbation; I10 Essential (primary) hypertension; R73.9 Hyperglycemia, unspecified | CPT/HCPCS: 99214; G0463 ==

== ENCOUNTER → 2017-01-10 | Outpatient (CLI) | payer OTHER | LOC: MMPC 11:11 | PROVIDERS: ATTEND Internal Medicine | DX: J44.9 Chronic obstructive pulmonary disease, unspecified (principal); E78.5 Hyperlipidemia, unspecified; I10 Essential (primary) hypertension | CPT/HCPCS: 99214; G0463 ==

== ENCOUNTER → 2017-02-13 | Outpatient (CLI) | payer OTHER ==
--- NOTE | 2017-02-13 14:57 | DI ---
XR CXR 2VW PA/LAT,02/13/2017 2:11 PM: Clinical History: Chronic obstructive pulmonary disease. Previous Exam: October 17, 2016 Findings: PA and lateral views of the chest are obtained, and demonstrate increasing airspace disease within th e right lung base. There is also some subsegmental atelectasis in the left lung base. Mild degenerative changes are seen involving the acromioclavicular joints. The glenohumeral joints are also unremarkable. Diffuse degenerative changes of the thoracic spine are seen. Impression: Airspace disease within both lung bases worse since the prior exam. This is worrisome for an early pn eumonia.
== END ==
LOC: MOB RAD 14:14
PROVIDERS: ATTEND Internal Medicine
DX: J44.9 Chronic obstructive pulmonary disease, unspecified (principal)
CPT/HCPCS: 71020

== ENCOUNTER 2018-04-23 18:36 | Inpatient (IN) ==
[2018-04-23] MEDS ORDERED: IPRATROPIUM/ALBUTEROL SULFATE 3 ML NEB NEB ONE (19:11)
[2018-04-23] MEDS ORDERED: KETOROLAC 15 MG/1 ML VIAL IVP ONE (19:11)
[2018-04-23] MEDS ORDERED: Sodium Chloride 0.9% 1,000 ML PRIMARY IV ONE (19:11)
[2018-04-23] MEDS ORDERED: ONDANSETRON 4 MG/2 ML VIAL IVP ONE (19:11)
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
[2018-04-23 19:36] LABS: VENOUS PH 7.39 (7.32-7.42)
[2018-04-23 19:38] LABS: BASOPHILS # (AUTO) 0.03 10*3/UL; BASOPHILS % (AUTO) 0.2 % (0-1); EOSINOPHILS % (AUTO) 0.7 % (0-8); Hematocrit [HCT] 42.5 % (42.0-52.0); Hemoglobin [HGB] 14.1 g/dL (14.0-18.0); LYMPHOCYTES # (AUTO) 1.64 10*3/uL; MEAN CORPUSCULAR HEMOGLOBIN 29.9 PG (27-31); MEAN CORPUSCULAR HGB CONC 33.2 g/dL (33-37); MEAN CORPUSCULAR VOLUME 90.2 FL (80-90); MEAN PLATELET VOLUME 9.8 FL (7.4-12.2); MONOCYTES # (AUTO) 0.97 10*3/UL (0.3-0.8); MONOCYTES % (AUTO) 6.5 % (5-15); NEUTROPHILS % (AUTO) 81.4 % (50-80); RED BLOOD COUNT 4.71 10^6/uL (4.70-6.10)
[2018-04-23 19:44] LABS: BLOOD UREA NITROGEN 26 mg/dL (7-22)
[2018-04-23 19:47] LABS: PLATELET MORPHOLOGY COMMENT NORMAL MORPHOLOGY (NORM); RBC MORPHOLOGY COMMENT NORMAL MORPHOLOGY (NORM); WBC MORPHOLOGY COMMENT NORMAL MORPHOLOGY (NORM)
--- NOTE | 2018-04-23 20:06 | DI ---
EXAM: XR Chest, 2 Views CLINICAL HISTORY: ITS.REASON sob Physician Notes: Tech Comments: TECHNIQUE: Frontal and lateral views of the chest. COMPARISON: Chest radiography 02/01/18. FINDINGS: Lungs: Scarring at the lower lobes. No dense consolidation, pleural effusion or pneumothorax. Pleural space: See above. Heart: Unremarkable. No cardiomegaly. Mediastinum: Unremarkable. Bones/joints: Degenerative changes of the spine. IMPRESSION: No acute cardiopulmonary disease.
[2018-04-23] MEDS ORDERED: cefTRIAXone Inj 2 GM in Sodium Chloride 0.9% 100 ML IV ONE (20:08)
[2018-04-23] MEDS ORDERED: DEXAMETHASONE PF 10 MG/1 ML VIAL IVP ONE (20:09)
[2018-04-23] MEDS ORDERED: LEVALBUTEROL HCL 1.25 MG/3 ML NEB ONE (20:38)
[2018-04-23] MEDS ORDERED: IPRATROPIUM/ALBUTEROL SULFATE 3 ML NEB NEB PRN (23:26)
[2018-04-23] MEDS ORDERED: Non-Formulary Drug (Levalbuterol Tartrate [Xopenex Hfa] 2 PUFF) INH SCH (23:26)
[2018-04-23] MEDS ORDERED: HEPARIN 5000 UNIT/1 ML SUBCUT SCH (23:26)
[2018-04-23] MEDS ORDERED: ALBUTEROL SULFATE 2.5 MG/3 ML NEB PRN (23:26)
[2018-04-23] MEDS ORDERED: LIDOCAINE W/ SODIUM BICARB 0.5 ML SYR SUBD PRN (23:26)
[2018-04-23] MEDS ORDERED: ONDANSETRON 4 MG/2 ML VIAL IVP PRN (23:26)
[2018-04-23] MEDS: Sodium Chloride 0.9% 1,000 ML PRIMARY IV SCH (23:37)
[2018-04-24] MEDS ORDERED: Pneumococcal Vacc 13 Syringe 0.5 ML DISP.SYRIN IM ONE (00:05)
[2018-04-24] MEDS: methylPREDNISolone 125 MG/2 ML VIAL IVP SCH ×3 (04:17→13:03)
[2018-04-24 05:08] LABS: BASOPHILS # (AUTO) 0.01 10*3/UL; BASOPHILS % (AUTO) 0.1 % (0-1); EOSINOPHILS # (AUTO) 0 10*3/UL; EOSINOPHILS % (AUTO) 0 % (0-8); Hematocrit [HCT] 39.5 % (42.0-52.0); Hemoglobin [HGB] 12.7 g/dL (14.0-18.0); LYMPHOCYTES # (AUTO) 0.78 10*3/uL; MEAN CORPUSCULAR HEMOGLOBIN 29.4 PG (27-31); MEAN CORPUSCULAR HGB CONC 32.2 g/dL (33-37); MEAN CORPUSCULAR VOLUME 91.4 FL (80-90); MEAN PLATELET VOLUME 9.6 FL (7.4-12.2); MONOCYTES # (AUTO) 0.17 10*3/UL (0.3-0.8); MONOCYTES % (AUTO) 1.9 % (5-15); NEUTROPHILS # (AUTO) 7.98 10*3/UL; NEUTROPHILS % (AUTO) 89.2 % (50-80); RED BLOOD COUNT 4.32 10^6/uL (4.70-6.10)
[2018-04-24 05:16] LABS: PLATELET MORPHOLOGY COMMENT NORMAL MORPHOLOGY (NORM); RBC MORPHOLOGY COMMENT NORMAL MORPHOLOGY (NORM); WBC MORPHOLOGY COMMENT NORMAL MORPHOLOGY (NORM)
[2018-04-24 05:21] LABS: BLOOD UREA NITROGEN 27 mg/dL (7-22)
[2018-04-24] MEDS: Sodium Chloride 0.9% 1,000 ML PRIMARY IV SCH (07:49)
[2018-04-24 07:58] VITALS: RESP 18
[2018-04-24] MEDS ORDERED: Non-Formulary Drug (Levalbuterol Tartrate [Xopenex Hfa] 2 PUFF) INH PRN (08:30)
[2018-04-24] MEDS: HYDROCHLOROTHIAZIDE 12.5 MG CAPSULE PO SCH ×2 (08:57→09:00)
[2018-04-24] MEDS ORDERED: FERROUS GLUCONATE 324 MG TABLET PO SCH (09:00)
[2018-04-24] MEDS ORDERED: FENOFIBRATE NANOCRYSTALLIZED 48 MG PO SCH (09:00)
[2018-04-24] MEDS ORDERED: Non-Formulary Drug (Fluticasone/Vilanterol [Breo Ellipta 200-25 Mcg Inh] 1 INH) INH SCH (09:00)
[2018-04-24 10:53] LABS: HEMOGLOBIN A1C 6.52 % (4.2-6.0)
[2018-04-24 11:00] VITALS: BP 156/73; TEMP 96.9; O2SAT 96
[2018-04-24] MEDS ORDERED: SODIUM CHLORIDE 44 ML SPRAY ENOS ONE (12:43)
--- NOTE | 2018-04-24 12:55 | PDOC ---
HPI - History of Present Illness Date of Service: 04/24/18 Time of Service: 12:42 Chief Complaint: short of breath History of Present Illness: This is a 77 YO male that presents with acute onset shortness of breath. Started a day or day and a half ago. Normally on 4-5 LPM and CPAP at night but states breathing treatments helped in the ER with feeling better. Overnight, the patient states he feels better into this morning. No fevers, no chills. States he is on inhalers at home. States he had stem cell treatment twice for COPD, but does not think it worked. He feels that he has had an increase in phlegm. He notes his post nasal drip gets worse and his left nostril is difficult to breath through. He states that he was total longtime ago he may need sinus surgery but never did pursue it. He feels like if he could breathe better on that nostril that he would be less short of breath. He states Mucinex sometimes does help. He really would like to go home. Past Medical History Medical History: 1. COPD, normally on 4-5 L per nasal cannula oxygen, status post stem cell transplant therapy in [place] and again in [place]. 2. Hypertension. 3. History of prostate cancer status post radical prostatectomy. 4. Polycythemia. 5. Obstructive sleep apnea, on CPAP therapy. 6. Some skin cancers. Surgical History: Radical prostatectomy, skin cancer removals Pertinent Family History: Father of a massive myocardial infarction. The patient's mother is still alive at 98. Past Social History: Patient did smoke in the past, quit. for 33 years. This is his second marriage. Retired and lives in [place], [place]. Does not drink alcohol. Tobacco Use: Former Smoker In the Past 12 Months, Have Used or Abuse Any of the Following Substance: None Alcohol Use: None Medication / Allergies Home Medications: Home Medications 3 Medication Instructions Recorded Confirmed Type Oxygen (O2) 3 l NASAL continous #3 unit 03/02/13 02/01/18 History Levalbuterol Tartrate [Xopenex Hfa] 2 puff INH Q4-6H #3 puff 01/10/17 02/01/18 Rx hydrochlorothiazide 12.5 mg capsule 12.5 mg PO QDAY #90 cap 05/14/17 02/01/18 History doxycycline hyclate 100 mg tablet 100 mg PO BID #14 tab 08/28/17 02/01/18 Rx ascorbic acid (vitamin C) 500 mg 500 mg PO QDAY tab 12/04/17 02/01/18 History tablet fenofibrate nanocrystallized 48 mg 48 mg PO QDAY tab 12/04/17 02/01/18 History tablet ferrous gluconate 324 mg (37.5 mg 324 mg PO BID tab 12/04/17 02/01/18 History iron) tablet ipratropium-albuterol 0.5 mg-3 3 ml INH QID ml 12/04/17 02/01/18 History mg(2.5 mg base)/3 mL nebulization soln multivit with jb-MH-avvjvrna-omega 1 cap PO QDAY tab 12/04/17 02/01/18 History 3,6,9 no.3 400 mcg-300 mcg capsule omega 3-ino-lxi-fish oil 300 1 cap PO QDAY ea 12/04/17 02/01/18 History mg-1,000 mg capsule,delayed release vitamin B complex tablet 1 tab PO QDAY ea 12/04/17 02/01/18 History pravastatin 80 mg tablet 80 mg PO QHS #90 tab 01/27/18 02/01/18 Rx fluticasone 200 mcg-vilanterol 25 1 inh INH QDAY #60 ea 02/27/18 Rx mcg/dose powder for inhalation umeclidinium 62.5 mcg/actuation 1 inh INH QDAY #30 ea 02/27/18 Rx blister powder for inhalation fluticasone 100 mcg-umeclid 62.5 #6 Samples 03/05/18 03/05/18 Sample mcg-vilant 25 mcg powd for inhalation Allergies/Adverse Reactions: Allergies 3 Allergy/AdvReac Type Severity Reaction Status Date / Time testosterone AdvReac NOT Verified 04/23/18 18:44 APPLICABLE Review of Systems - Constitutional Constitutional: REPORTS: General Health Poor (He states he feels like his lung disease is getting worse) - Respiratory Respiratory: REPORTS: See HPI - Cardiovascular Cardiovascular: REPORTS: Negative System Review - Gastrointestinal Gastrointestinal / Abdominal: REPORTS: Negative System Review - Genitourinary Genitourinary: REPORTS: Other (States that he leaks urine frequently after his surgery) - Neurological Neurologic: REPORTS: Negative System Review Exam - Vitals Vital Signs: Vital Signs Temperature 96.9 F Temperature Source Temporal Artery Scan Pulse Rate [Pulse Oximeter] 79 Pulse Rate 78 Respiratory Rate 18 Blood Pressure [Right Arm] 156/73 Blood Pressure 116/48 Pulse Ox 96 Oxygen Flow Rate 5 Oxygen Delivery Method Nasal Cannula Height 5 ft 11 in Weight 222 lb 12.8 oz - General General Appearance: No Acute Distress, Cooperative - Head Head Exam: Normal Inspection, Normocephalic, Atraumatic - Eye Eye Exam: POSITIVE: No Scleral Icterus - ENT ENT Exam: POSITIVE: Mucous Membranes Moist Additonal ENT Exam Details: Left nostril is pale, may have a slight polyp on the lateral aspect of the lower turbinate, and is quite swollen. - Neck Neck Exam: Normal Inspection, No Tenderness, No Lymphadenopathy, No Thyromegaly , JVP is not Raised - Respiratory Respiratory Exam: POSITIVE: Breathing Non Labored, Coarse Breath Sounds - Cardiovascular Cardiovascular Exam: POSITIVE: RRR, No Murmur, No Clicks, No Gallops, No Rubs, No JVD - GI/Abdominal GI/Abdominal Exam: POSITIVE: Normal Bowel Sounds, Non Tender, Non Distended, Soft - Rectal Rectal Exam: POSITIVE: Deferred - External Exam: POSITIVE: Deferred Exam: POSITIVE: Deferred - Extremities Extremities Exam: POSITIVE: No Edema Present, No Cyanosis Present - Back Back Exam: POSITIVE: Normal Inspection, No CVA Tenderness - Neurological Neurological Exam: POSITIVE: Alert, Oriented x 3, No Facial Droop, Speech Intact / Clear, Moves All Extremities Equally Results - Labs CBC and BMP: 04/24/18 04:26 04/24/18 04:26 Additional Lab Results: Laboratory Results 04/23/18 04/23/18 04/23/18 Range/Units 18:25 18:25 18:25 WBC 14.87 H (4.8-10.8) 10^3/uL RBC 4.71 (4.70-6.10) 10^6/uL Hgb 14.1 (14.0-18.0) g/dL Hct 42.5 (42.0-52.0) % MCV 90.2 H (80-90) FL MCH 29.9 (27-31) PG MCHC 33.2 (33-37) g/dL RDW Std Deviation 48.7 (39-50) fL RDW Coeff of Vamshi 14.9 H (11.5-14.5) % Plt Count 269 (140-350) 10*3/uL MPV 9.8 (7.4-12.2) FL Immature Gran % (Auto) 0.2 (0-5) % Neut % (Auto) 81.4 H (50-80) % Lymph % (Auto) 11.0 (10-50) % [place] % (Auto) 6.5 (5-15) % Eos % (Auto) 0.7 (0-8) % Baso % (Auto) 0.2 (0-1) % Immature Gran # (Auto) 0.03 10*3/UL Neut # (Auto) 12.10 10*3/UL Lymph # (Auto) 1.64 10*3/uL [place] # (Auto) 0.97 H (0.3-0.8) 10*3/UL Eos # (Auto) 0.10 10*3/UL Baso # (Auto) 0.03 10*3/UL WBC Morphology Comment Normal morphology (NORM) Plt Morphology Comment Normal morphology (NORM) RBC Morph Comment Normal morphology (NORM) D-Dimer 0.38 (0.00-0.59) mg/L VBG pH (7.32-7.42) VBG pCO2 (45-55) mmHg VBG HCO3 (22-26) mmol/L VBG Base Excess (-2-2) MMOL/L Sodium 137 (135-145) meq/L Potassium 4.8 (3.8-5.2) meq/L Chloride 102 (98-112) meq/L Carbon Dioxide 28 (23-33) meq/L Anion Gap 7 (5-20) BUN 26 H (7-22) mg/dL Creatinine 1.0 (0.70-1.50) mg/dL BUN/Creatinine Ratio 26.00 H (6-20) Glucose 142 H (78-110) mg/dL Mean Blood Glucose mg/dL Hemoglobin A1c (4.2-6.0) % Calculated Osmolality 290.0 (267-292) mOsm/kg Lactic Acid (0.70-2.10) MMOL/L Calcium 9.1 (8.7-10.7) mg/dL Magnesium 1.9 (1.6-2.4) mg/dL Total Bilirubin 0.5 (0.3-1.2) mg/dL AST 24 (21-57) IU/L ALT 41 (21-72) IU/L Alkaline Phosphatase 81 (38-126) IU/L NT-Pro-B Natriuret Pep 212 (0-450) PG/ML Total Protein 7.3 (6.1-8.0) g/dL Albumin 4.0 (3.5-4.8) g/dL Globulin 3.3 (2.50-4.10) g/dL Albumin/Globulin Ratio 1.20 L (1.3-2.0) mg/g 04/23/18 04/23/18 04/24/18 Range/Units 19:20 19:24 04:26 WBC 8.95 (4.8-10.8) 10^3/uL RBC 4.32 L (4.70-6.10) 10^6/uL Hgb 12.7 L (14.0-18.0) g/dL Hct 39.5 L (42.0-52.0) % MCV 91.4 H (80-90) FL MCH 29.4 (27-31) PG MCHC 32.2 L (33-37) g/dL RDW Std Deviation 48.3 (39-50) fL RDW Coeff of Vamshi 14.8 H (11.5-14.5) % Plt Count 217 (140-350) 10*3/uL MPV 9.6 (7.4-12.2) FL Immature Gran % (Auto) 0.1 (0-5) % Neut % (Auto) 89.2 H (50-80) % Lymph % (Auto) 8.7 L (10-50) % [place] % (Auto) 1.9 L (5-15) % Eos % (Auto) 0 (0-8) % Baso % (Auto) 0.1 (0-1) % Immature Gran # (Auto) 0.01 10*3/UL Neut # (Auto) 7.98 10*3/UL Lymph # (Auto) 0.78 10*3/uL [place] # (Auto) 0.17 L (0.3-0.8) 10*3/UL Eos # (Auto) 0 10*3/UL Baso # (Auto) 0.01 10*3/UL WBC Morphology Comment Normal morphology (NORM) Plt Morphology Comment Normal morphology (NORM) RBC Morph Comment Normal morphology (NORM) D-Dimer (0.00-0.59) mg/L VBG pH 7.39 (7.32-7.42) VBG pCO2 41 L (45-55) mmHg VBG HCO3 25 (22-26) mmol/L VBG Base Excess 0 (-2-2) MMOL/L Sodium (135-145) meq/L Potassium (3.8-5.2) meq/L Chloride (98-112) meq/L Carbon Dioxide (23-33) meq/L Anion Gap (5-20) BUN (7-22) mg/dL Creatinine (0.70-1.50) mg/dL BUN/Creatinine Ratio (6-20) Glucose (78-110) mg/dL Mean Blood Glucose mg/dL Hemoglobin A1c (4.2-6.0) % Calculated Osmolality (267-292) mOsm/kg Lactic Acid 0.8 (0.70-2.10) MMOL/L Calcium (8.7-10.7) mg/dL Magnesium (1.6-2.4) mg/dL Total Bilirubin (0.3-1.2) mg/dL AST (21-57) IU/L ALT (21-72) IU/L Alkaline Phosphatase (38-126) IU/L NT-Pro-B Natriuret Pep (0-450) PG/ML Total Protein (6.1-8.0) g/dL Albumin (3.5-4.8) g/dL Globulin (2.50-4.10) g/dL Albumin/Globulin Ratio (1.3-2.0) mg/g 04/24/18 04/24/18 Range/Units 04:26 04:26 WBC (4.8-10.8) 10^3/uL RBC (4.70-6.10) 10^6/uL Hgb (14.0-18.0) g/dL Hct (42.0-52.0) % MCV (80-90) FL MCH (27-31) PG MCHC (33-37) g/dL RDW Std Deviation (39-50) fL RDW Coeff of Vamshi (11.5-14.5) % Plt Count (140-350) 10*3/uL MPV (7.4-12.2) FL Immature Gran % (Auto) (0-5) % Neut % (Auto) (50-80) % Lymph % (Auto) (10-50) % [place] % (Auto) (5-15) % Eos % (Auto) (0-8) % Baso % (Auto) (0-1) % Immature Gran # (Auto) 10*3/UL Neut # (Auto) 10*3/UL Lymph # (Auto) 10*3/uL [place] # (Auto) (0.3-0.8) 10*3/UL Eos # (Auto) 10*3/UL Baso # (Auto) 10*3/UL WBC Morphology Comment (NORM) Plt Morphology Comment (NORM) RBC Morph Comment (NORM) D-Dimer (0.00-0.59) mg/L VBG pH (7.32-7.42) VBG pCO2 (45-55) mmHg VBG HCO3 (22-26) mmol/L VBG Base Excess (-2-2) MMOL/L Sodium 137 (135-145) meq/L Potassium 4.7 (3.8-5.2) meq/L Chloride 105 (98-112) meq/L Carbon Dioxide 27 (23-33) meq/L Anion Gap 5 (5-20) BUN 27 H (7-22) mg/dL Creatinine 1.0 (0.70-1.50) mg/dL BUN/Creatinine Ratio 27.00 H (6-20) Glucose 314 H (78-110) mg/dL Mean Blood Glucose 131.116 mg/dL Hemoglobin A1c 6.52 H (4.2-6.0) % Calculated Osmolality 300.0 H (267-292) mOsm/kg Lactic Acid (0.70-2.10) MMOL/L Calcium 8.5 L (8.7-10.7) mg/dL Magnesium (1.6-2.4) mg/dL Total Bilirubin (0.3-1.2) mg/dL AST (21-57) IU/L ALT (21-72) IU/L Alkaline Phosphatase (38-126) IU/L NT-Pro-B Natriuret Pep (0-450) PG/ML Total Protein (6.1-8.0) g/dL Albumin (3.5-4.8) g/dL Globulin (2.50-4.10) g/dL Albumin/Globulin Ratio (1.3-2.0) mg/g - Imaging Status: Image Reviewed by Me (Chest x-ray, on my view, is negative for pneumonia ) Assessment and Plan - Patient Problems (1) COPD exacerbation Current Visit: Yes Status: Acute Code(s): J44.1 - Chronic obstructive pulmonary disease with (acute) exacerbation (2) Nasal polyp, unspecified Current Visit: Yes Status: Acute Code(s): J33.9 - Nasal polyp, unspecified (3) Obstructive sleep apnea syndrome in adult Current Visit: No Status: Acute Onset Date: 12/13/11 Code(s): G47.33 - Obstructive sleep apnea (adult) (pediatric) (4) Essential hypertension Current Visit: No Status: Acute Onset Date: 03/04/12 Code(s): I10 - Essential (primary) hypertension (5) Hypertension Current Visit: Yes Status: Chronic Code(s): I10 - Essential (primary) hypertension Qualifiers: Hypertension type: essential hypertension Qualified Code(s): I10 - Essential (primary) hypertension (6) Hyperglycemia Current Visit: Yes Status: Acute Code(s): R73.9 - Hyperglycemia, unspecified - Assessment / Plan Additional Assessment/Plan Details: I will go ahead and discharge the patient on prednisone for 5 days and Zithromax for 3 days total. I think this is an acute exacerbation of COPD that can be managed on an outpatient basis at this time. Breathing therapies were very helpful to the patient overnight in terms of his shortness of breath. Continue oxygen and CPAP therapy. Continue breathing therapies at home including albuterol. Nasal saline spray for nostril and ENT outpatient visit. Follow-up with PCP in about 7 days. Given the elevated hemoglobin A1c, I think the patient would benefit from an evaluation with dietitian. I'll write him a prescription for that. I would like to hold off on starting any diabetic medications at this time and see where this is added next 3-6 months. If still elevated, he may benefit from starting metformin at that time. As per primary care provider.
--- NOTE | 2018-04-24 13:29 | DCSUMMARY ---
Hospitalization Summary Admit Date: 04/24/2018 Discharge Date: 04/24/18 Primary Diagnosis:: COPD exacerbation Secondary Diagnosis:: Left nasal polyp Hospital Course: This 77-year-old male that was admitted overnight for COPD exacerbation. He was placed on antibiotics and steroids. He feels significantly better in the morning after having some albuterol breathing treatments. He did not know when he last took his open at according to his medication reconciliation, and I'm prescribing albuterol at discharge for him. In addition, we'll keep him on prednisone and Zithromax for the next 5 and 3 days, respectively. Patient will continue his home oxygen. His chest x-ray was negative for pneumonia. He feels at his baseline in terms of the shortness of breath. He may have a left nasal polyp on exam and we'll get him set up to see ear nose and throat to evaluate further. We did find an elevated hemoglobin A1c and an elevated blood sugar. I suspect the patient is developing diabetes. His hemoglobin A1c was 6.54. I would like to have him see a dietitian in the interim and suggested repeating hemoglobin A1c in 3-6 months. Today, no completes of chest pain, shortness breath is at baseline, no nausea or vomiting. Patient would like to go home. Stepdaughter, and room, agreed with plan as well. Assessment and Plan: 1. As per discharge assessments noted 2. Disposition: Patient is discharged home 3. Condition on discharge, stable and improved. 4. Diet: regular diet 5. Activities: resume normal activities 6. Follow-Up: 1. Primary care provider within 7 days 2. Ear nose and throat are possible for evaluation of left nostril. 7. Medications at the Time of Discharge: Home Medications 3 Medication Instructions Recorded Confirmed Type Oxygen (O2) 3 l NASAL continous #3 unit 03/02/13 02/01/18 History hydrochlorothiazide 12.5 mg capsule 12.5 mg PO QDAY #90 cap 05/14/17 02/01/18 History ascorbic acid (vitamin C) 500 mg 500 mg PO QDAY tab 12/04/17 02/01/18 History tablet fenofibrate nanocrystallized 48 mg 48 mg PO QDAY tab 12/04/17 02/01/18 History tablet ferrous gluconate 324 mg (37.5 mg 324 mg PO BID tab 12/04/17 02/01/18 History iron) tablet ipratropium-albuterol 0.5 mg-3 3 ml INH QID ml 12/04/17 02/01/18 History mg(2.5 mg base)/3 mL nebulization soln multivit with td-KX-ccsbammp-omega 1 cap PO QDAY tab 12/04/17 02/01/18 History 3,6,9 no.3 400 mcg-300 mcg capsule omega 9-mgn-sab-fish oil 300 1 cap PO QDAY ea 12/04/17 02/01/18 History mg-1,000 mg capsule,delayed release vitamin B complex tablet 1 tab PO QDAY ea 12/04/17 02/01/18 History pravastatin 80 mg tablet 80 mg PO QHS #90 tab 01/27/18 02/01/18 Rx fluticasone 200 mcg-vilanterol 25 1 inh INH QDAY #60 ea 02/27/18 Rx mcg/dose powder for inhalation umeclidinium 62.5 mcg/actuation 1 inh INH QDAY #30 ea 02/27/18 Rx blister powder for inhalation fluticasone 100 mcg-umeclid 62.5 #6 Samples 03/05/18 03/05/18 Sample mcg-vilant 25 mcg powd for inhalation Albuterol 17 gm IH Q4H PRN #1 aer.refill 04/24/18 Rx Azithromycin [Zithromax] 500 mg PO DAILY #3 tab 04/24/18 Rx Prednisone 40 mg PO DAILY #10 tab 04/24/18 Rx 8. This is a same-day admission and discharge. Exam - Vitals Vital Signs: Vital Signs Temperature 96.9 F Temperature Source Temporal Artery Scan Pulse Rate [Pulse Oximeter] 79 Pulse Rate 78 Respiratory Rate 18 Blood Pressure [Right Arm] 156/73 Blood Pressure 116/48 Pulse Ox 96 Oxygen Flow Rate 5 Oxygen Delivery Method Nasal Cannula Height 5 ft 11 in Weight 222 lb 12.8 oz - General General Appearance: No Acute Distress, Cooperative - Eye Eye Exam: POSITIVE: No Scleral Icterus - ENT ENT Exam: POSITIVE: Mucous Membranes Moist - Neck Neck Exam: Normal Inspection, No Tenderness, No Lymphadenopathy, No Thyromegaly - Respiratory Respiratory Exam: POSITIVE: Breathing Non Labored, Coarse Breath Sounds - Cardiovascular Cardiovascular Exam: POSITIVE: RRR, No Murmur, No Clicks, No Gallops, No Rubs, No JVD - GI/Abdominal GI/Abdominal Exam: POSITIVE: Normal Bowel Sounds, Non Tender, Non Distended, Soft - Extremities Extremities Exam: POSITIVE: No Edema Present, No Cyanosis Present - Neurological Neurological Exam: POSITIVE: Alert, Oriented x 3, No Facial Droop, Speech Intact / Clear, Moves All Extremities Equally Data Peritnent Studies: Laboratory Results 04/23/18 04/23/18 04/23/18 Range/Units 18:25 18:25 18:25 WBC 14.87 H (4.8-10.8) 10^3/uL RBC 4.71 (4.70-6.10) 10^6/uL Hgb 14.1 (14.0-18.0) g/dL Hct 42.5 (42.0-52.0) % MCV 90.2 H (80-90) FL MCH 29.9 (27-31) PG MCHC 33.2 (33-37) g/dL RDW Std Deviation 48.7 (39-50) fL RDW Coeff of Vamshi 14.9 H (11.5-14.5) % Plt Count 269 (140-350) 10*3/uL MPV 9.8 (7.4-12.2) FL Immature Gran % (Auto) 0.2 (0-5) % Neut % (Auto) 81.4 H (50-80) % Lymph % (Auto) 11.0 (10-50) % Price % (Auto) 6.5 (5-15) % Eos % (Auto) 0.7 (0-8) % Baso % (Auto) 0.2 (0-1) % Immature Gran # (Auto) 0.03 10*3/UL Neut # (Auto) 12.10 10*3/UL Lymph # (Auto) 1.64 10*3/uL Price # (Auto) 0.97 H (0.3-0.8) 10*3/UL Eos # (Auto) 0.10 10*3/UL Baso # (Auto) 0.03 10*3/UL WBC Morphology Comment Normal morphology (NORM) Plt Morphology Comment Normal morphology (NORM) RBC Morph Comment Normal morphology (NORM) D-Dimer 0.38 (0.00-0.59) mg/L VBG pH (7.32-7.42) VBG pCO2 (45-55) mmHg VBG HCO3 (22-26) mmol/L VBG Base Excess (-2-2) MMOL/L Sodium 137 (135-145) meq/L Potassium 4.8 (3.8-5.2) meq/L Chloride 102 (98-112) meq/L Carbon Dioxide 28 (23-33) meq/L Anion Gap 7 (5-20) BUN 26 H (7-22) mg/dL Creatinine 1.0 (0.70-1.50) mg/dL BUN/Creatinine Ratio 26.00 H (6-20) Glucose 142 H (78-110) mg/dL Mean Blood Glucose mg/dL Hemoglobin A1c (4.2-6.0) % Calculated Osmolality 290.0 (267-292) mOsm/kg Lactic Acid (0.70-2.10) MMOL/L Calcium 9.1 (8.7-10.7) mg/dL Magnesium 1.9 (1.6-2.4) mg/dL Total Bilirubin 0.5 (0.3-1.2) mg/dL AST 24 (21-57) IU/L ALT 41 (21-72) IU/L Alkaline Phosphatase 81 (38-126) IU/L NT-Pro-B Natriuret Pep 212 (0-450) PG/ML Total Protein 7.3 (6.1-8.0) g/dL Albumin 4.0 (3.5-4.8) g/dL Globulin 3.3 (2.50-4.10) g/dL Albumin/Globulin Ratio 1.20 L (1.3-2.0) mg/g 04/23/18 04/23/18 04/24/18 Range/Units 19:20 19:24 04:26 WBC 8.95 (4.8-10.8) 10^3/uL RBC 4.32 L (4.70-6.10) 10^6/uL Hgb 12.7 L (14.0-18.0) g/dL Hct 39.5 L (42.0-52.0) % MCV 91.4 H (80-90) FL MCH 29.4 (27-31) PG MCHC 32.2 L (33-37) g/dL RDW Std Deviation 48.3 (39-50) fL RDW Coeff of Vamshi 14.8 H (11.5-14.5) % Plt Count 217 (140-350) 10*3/uL MPV 9.6 (7.4-12.2) FL Immature Gran % (Auto) 0.1 (0-5) % Neut % (Auto) 89.2 H (50-80) % Lymph % (Auto) 8.7 L (10-50) % Price % (Auto) 1.9 L (5-15) % Eos % (Auto) 0 (0-8) % Baso % (Auto) 0.1 (0-1) % Immature Gran # (Auto) 0.01 10*3/UL Neut # (Auto) 7.98 10*3/UL Lymph # (Auto) 0.78 10*3/uL Price # (Auto) 0.17 L (0.3-0.8) 10*3/UL Eos # (Auto) 0 10*3/UL Baso # (Auto) 0.01 10*3/UL WBC Morphology Comment Normal morphology (NORM) Plt Morphology Comment Normal morphology (NORM) RBC Morph Comment Normal morphology (NORM) D-Dimer (0.00-0.59) mg/L VBG pH 7.39 (7.32-7.42) VBG pCO2 41 L (45-55) mmHg VBG HCO3 25 (22-26) mmol/L VBG Base Excess 0 (-2-2) MMOL/L Sodium (135-145) meq/L Potassium (3.8-5.2) meq/L Chloride (98-112) meq/L Carbon Dioxide (23-33) meq/L Anion Gap (5-20) BUN (7-22) mg/dL Creatinine (0.70-1.50) mg/dL BUN/Creatinine Ratio (6-20) Glucose (78-110) mg/dL Mean Blood Glucose mg/dL Hemoglobin A1c (4.2-6.0) % Calculated Osmolality (267-292) mOsm/kg Lactic Acid 0.8 (0.70-2.10) MMOL/L Calcium (8.7-10.7) mg/dL Magnesium (1.6-2.4) mg/dL Total Bilirubin (0.3-1.2) mg/dL AST (21-57) IU/L ALT (21-72) IU/L Alkaline Phosphatase (38-126) IU/L NT-Pro-B Natriuret Pep (0-450) PG/ML Total Protein (6.1-8.0) g/dL Albumin (3.5-4.8) g/dL Globulin (2.50-4.10) g/dL Albumin/Globulin Ratio (1.3-2.0) mg/g 04/24/18 04/24/18 Range/Units 04:26 04:26 WBC (4.8-10.8) 10^3/uL RBC (4.70-6.10) 10^6/uL Hgb (14.0-18.0) g/dL Hct (42.0-52.0) % MCV (80-90) FL MCH (27-31) PG MCHC (33-37) g/dL RDW Std Deviation (39-50) fL RDW Coeff of Vamshi (11.5-14.5) % Plt Count (140-350) 10*3/uL MPV (7.4-12.2) FL Immature Gran % (Auto) (0-5) % Neut % (Auto) (50-80) % Lymph % (Auto) (10-50) % Price % (Auto) (5-15) % Eos % (Auto) (0-8) % Baso % (Auto) (0-1) % Immature Gran # (Auto) 10*3/UL Neut # (Auto) 10*3/UL Lymph # (Auto) 10*3/uL Price # (Auto) (0.3-0.8) 10*3/UL Eos # (Auto) 10*3/UL Baso # (Auto) 10*3/UL WBC Morphology Comment (NORM) Plt Morphology Comment (NORM) RBC Morph Comment (NORM) D-Dimer (0.00-0.59) mg/L VBG pH (7.32-7.42) VBG pCO2 (45-55) mmHg VBG HCO3 (22-26) mmol/L VBG Base Excess (-2-2) MMOL/L Sodium 137 (135-145) meq/L Potassium 4.7 (3.8-5.2) meq/L Chloride 105 (98-112) meq/L Carbon Dioxide 27 (23-33) meq/L Anion Gap 5 (5-20) BUN 27 H (7-22) mg/dL Creatinine 1.0 (0.70-1.50) mg/dL BUN/Creatinine Ratio 27.00 H (6-20) Glucose 314 H (78-110) mg/dL Mean Blood Glucose 131.116 mg/dL Hemoglobin A1c 6.52 H (4.2-6.0) % Calculated Osmolality 300.0 H (267-292) mOsm/kg Lactic Acid (0.70-2.10) MMOL/L Calcium 8.5 L (8.7-10.7) mg/dL Magnesium (1.6-2.4) mg/dL Total Bilirubin (0.3-1.2) mg/dL AST (21-57) IU/L ALT (21-72) IU/L Alkaline Phosphatase (38-126) IU/L NT-Pro-B Natriuret Pep (0-450) PG/ML Total Protein (6.1-8.0) g/dL Albumin (3.5-4.8) g/dL Globulin (2.50-4.10) g/dL Albumin/Globulin Ratio (1.3-2.0) mg/g Procedures: [address] [facility] [place] [address] PH: DD: [phone] FAX: [phone] ~DIAGNOSTIC IMAGING REPORT~ Patient: DeshawnMikery : 1940 Sex: M Age: 77 Exam Name: XR CXR 2VW PA/LAT Exam Date: 04/23/18 Report # : [id number] CPT Code: 82582 EMR/MR #: [id number] Ordering: Fortino Liriano Admiting: Primary: Edwar Llanes MD Attending: Signed EXAM: XR Chest, 2 Views CLINICAL HISTORY: ITS.REASON sob Physician Notes: Tech Comments: TECHNIQUE: Frontal and lateral views of the chest. COMPARISON: Chest radiography 02/01/18. FINDINGS: Lungs: Scarring at the lower lobes. No dense consolidation, pleural effusion or pneumothorax. Pleural space: See above. Heart: Unremarkable. No cardiomegaly. Mediastinum: Unremarkable. Bones/joints: Degenerative changes of the spine. IMPRESSION: No acute cardiopulmonary disease. Dictated By: Raoul Oliver MD Signed By: 04/23/182005 Raoul Oliver MD Patient Problems - Patient Problem List (1) COPD exacerbation Current Visit: Yes Status: Acute Code(s): J44.1 - Chronic obstructive pulmonary disease with (acute) exacerbation Category: Medical (2) Nasal polyp, unspecified Current Visit: Yes Status: Acute Code(s): J33.9 - Nasal polyp, unspecified Category: Medical (3) Obstructive sleep apnea syndrome in adult Current Visit: No Status: Acute Onset Date: 12/13/11 Comment: on CPAP Code(s): G47.33 - Obstructive sleep apnea (adult) (pediatric) Category: Medical (4) Essential hypertension Current Visit: No Status: Acute Onset Date: 03/04/12 Code(s): I10 - Essential (primary) hypertension Category: Medical (5) Hypertension Current Visit: Yes Status: Chronic Code(s): I10 - Essential (primary) hypertension Qualifiers: Hypertension type: essential hypertension Qualified Code(s): I10 - Essential (primary) hypertension Category: Medical (6) Hyperglycemia Current Visit: Yes Status: Acute Code(s): R73.9 - Hyperglycemia, unspecified Category: Medical
[2018-04-24] MEDS ORDERED: Pravastatin 80mg Tab PO SCH (21:00)
[2018-04-24] MEDS ORDERED: cefTRIAXone Inj 2 GM in Sodium Chloride 0.9% 100 ML IV SCH (22:15)
[2018-04-25] MEDS ORDERED: AZITHROMYCIN 250 MG TABLET PO SCH (22:08)
== END 2018-04-24 13:43 | disposition home or self-care (01) | DRG 192 ==
LOC: ER 18:36 → MED/SURG 20:22
PROVIDERS: ADMIT Internal Medicine; ATTEND Internal Medicine

== ENCOUNTER 2019-01-07 21:55 | Inpatient (IN) ==
[2019-01-07] MEDS ORDERED: Sodium Chloride 0.9% 1,000 ML PRIMARY IV ONE (22:15)
--- NOTE | 2019-01-07 22:26 | EKG ---
[address] [address] Measurements Intervals [place] Rate: 127 P: 53 LA: 150 QRS: 53 QRSD: 89 T: 65 QT: 313 QTc: 388 Interpretive Statements SINUS TACHYCARDIA NONSPECIFIC ST & T-WAVE ABNORMALITY ABNORMAL RHYTHM ECG Compared to ECG 02/01/2018 22:21:47 T-wave abnormality now present Electronically Signed On 01-08-19 09:40:48 MDT by Ishmael Sanderson [email or web address]
[2019-01-07] MEDS: IPRATROPIUM/ALBUTEROL SULFATE 3 ML NEB NEB ONE (22:36)
[2019-01-07 22:38] LABS: VENOUS PH 7.41 (7.32-7.42)
[2019-01-07 22:41] LABS: BASOPHILS # (AUTO) 0.03 10*3/UL; BASOPHILS % (AUTO) 0.2 % (0-1); EOSINOPHILS # (AUTO) 0.09 10*3/UL; EOSINOPHILS % (AUTO) 0.5 % (0-8); Hematocrit [HCT] 40.2 % (42.0-52.0); Hemoglobin [HGB] 12.6 g/dL (14.0-18.0); LYMPHOCYTES # (AUTO) 1.71 10*3/uL; MEAN CORPUSCULAR HEMOGLOBIN 29.5 PG (27-31); MEAN CORPUSCULAR HGB CONC 31.3 g/dL (33-37); MEAN CORPUSCULAR VOLUME 94.1 FL (80-90); MEAN PLATELET VOLUME 9.5 FL (7.4-12.2); MONOCYTES # (AUTO) 1.54 10*3/UL (0.3-0.8); MONOCYTES % (AUTO) 8.6 % (5-15); NEUTROPHILS # (AUTO) 14.44 10*3/UL; NEUTROPHILS % (AUTO) 80.8 % (50-80); RED BLOOD COUNT 4.27 10^6/uL (4.70-6.10)
[2019-01-07 22:50] LABS: BLOOD UREA NITROGEN 19 mg/dL (7-22); BUN/CREATININE RATIO 14.61 (6-20); SERUM ALBUMIN 3.9 g/dL (3.5-4.8)
[2019-01-07 22:57] LABS: PLATELET MORPHOLOGY COMMENT NORMAL MORPHOLOGY (NORM); RBC MORPHOLOGY COMMENT NORMAL MORPHOLOGY (NORM); WBC MORPHOLOGY COMMENT NORMAL MORPHOLOGY (NORM)
[2019-01-07 23:47] LABS: BILIRUBIN,URINE SMALL (NEG); CLARITY,URINE CLEAR (CLEAR); COLOR,URINE YELLOW (Y); GLUCOSE, URINE (UA) 100 mg/dL (NEG); OCCULT BLOOD,URINE NEGATIVE (NEG); PH,URINE 5.5 (5.0-8.5); PROTEIN,URINE 100 mg/dl (NEG)
[2019-01-07 23:49] LABS: URINE SAMPLE TYPE CLEAN CATCH URINE
[2019-01-07 23:53] LABS: SQUAMOUS EPITHELIAL CELL,UR FEW
--- NOTE | 2019-01-08 00:02 | DI ---
History: ITS.REASON dyspnea;elevatedd-dimer Physician Notes: Tech Comments: Exam: CTA CHEST With Contrast MIP images obtained Comparison: FINDINGS: No evidence of filling defect to suggest pulmonary embolism. Thoracic aorta and visualized great vessels appear within limits. Left main and right coronary calcification. No pericardial or pleural effusion. Sequela of previous granulomatous disease. Enlarged pretracheal mediastinal and right hilar nodes likely reactive, attention on follow-up imaging. Airspace consolidation majority of the right middle and lower lobes most concerning for multifocal pneumonia. Small frothy fluid level bronchus intermedius axial 56 series 2. Suggestion of subsegmental airway opacification right lower lobe axial 84 may represent secretions, mucous plugging and left lower lobe axial 75. [id number] centrilobular pulmonary emphysema. Calcified granulomas left lower lobe. IMPRESSION: No evidence of filling defect to suggest pulmonary embolism. Left main and right coronary calcification. Enlarged pretracheal mediastinal and right hilar nodes likely reactive, attention on follow-up imaging. Airspace consolidation majority of the right middle and lower lobes most concerning for multifocal pneumonia. Small frothy fluid level bronchus intermedius axial 56 series 2. Suggestion of subsegmental airway opacification right lower lobe axial 84 may represent secretions, mucous plugging and left lower lobe axial 75. [id number] centrilobular pulmonary emphysema.
[2019-01-08] MEDS ORDERED: cefTRIAXone Inj 1 GM in Sodium Chloride 0.9% 100 ML IV ONE (00:19)
[2019-01-08] MEDS ORDERED: cefTRIAXone Inj 2 GM in Sodium Chloride 0.9% 100 ML IV ONE (00:23)
[2019-01-08] MEDS ORDERED: LIDOCAINE HCL 2 % 10 ML JELLY URO-JECT TOPICAL PRN ×2 (00:35→00:50)
--- NOTE | 2019-01-08 00:38 | PDOC ---
HPI - History of Present Illness History of Present Illness: Jacques winslow 69-year-old gentleman who was brought to the emergency room via ambulance, he states that he has been feeling more short of breath over the last couple days but this morning he feels a much better compared to when he first came in complaining of cough but no fevers no active smoking at present time home and when he was the in the ER is sats were in the 60s and later in the evening went back up to baseline of about 4 L 92% he denies any chest pain or shortness of breath this morning and is already asking me discharged home. I told the patient that he has bilateral pneumonias and most likely he will be here a few days to treat this and agrees. Past Medical History Medical History: 1. COPD, normally on 4-5 L per nasal cannula oxygen, status post stem cell transplant therapy in [place] and again in [place]. 2. Hypertension. 3. History of prostate cancer status post radical prostatectomy. 4. Polycythemia. 5. Obstructive sleep apnea, on CPAP therapy. 6. Some skin cancers. Surgical History: Radical prostatectomy, skin cancer removals Pertinent Family History: Father of a massive myocardial infarction. The patient's mother is still alive at 98. Past Social History: Patient did smoke in the past, quit. for 33 years. This is his second marriage. Retired and lives in [place], [place]. Does not drink alcohol. Tobacco Use: Former Smoker In the Past 12 Months, Have Used or Abuse Any of the Following Substance: None Medication / Allergies Home Medications: Home Medications Medication Instructions Recorded Confirmed Oxygen (O2) 3 l NASAL continous #3 unit 03/02/13 01/07/19 ipratropium-albuterol 0.5 mg-3 3 ml INH QID ml 12/04/17 01/07/19 mg(2.5 mg base)/3 mL nebulization soln umeclidinium 62.5 mcg/actuation 1 inh INH QDAY #30 ea 02/27/18 01/07/19 blister powder for inhalation Albuterol 17 gm IH Q4H PRN #1 aer.refill 04/24/18 01/07/19 azelastine 137 mcg (0.1 %) nasal 1 spray INASL BID #30 ml 09/17/18 01/07/19 spray aerosol doxycycline hyclate 100 mg tablet 100 mg PO BID #14 tab 10/22/18 01/07/19 fluticasone fur. 100 mcg-umeclid 1 inh INH QDAY #28 ea 10/22/18 01/07/19 62.5 mcg-vilant 25 mcg inhalat.powder prednisone 20 mg tablet 20 mg PO QDAY #30 tab 10/22/18 01/07/19 pravastatin 80 mg tablet 80 mg PO QHS #90 tab 11/10/18 01/07/19 fenofibrate nanocrystallized 48 mg 48 mg PO QDAY #90 tab 11/26/18 01/07/19 tablet Allergies/Adverse Reactions: Allergies Allergy/AdvReac Type Severity Reaction Status Date / Time testosterone AdvReac NOT Verified 01/07/19 22:25 APPLICABLE Review of Systems - Review of Systems All Systems: Reviewed & No Additional Complaints Except as Stated - Respiratory Respiratory: REPORTS: Cough, Dyspnea At Rest - Cardiovascular Cardiovascular: DENIES: Negative System Review, Chest Pain, Edema, Syncope, Palpitations, Orthopnea, Paroxysmal Nocturnal Dyspnea, Other, See HPI - Gastrointestinal Gastrointestinal / Abdominal: DENIES: Negative System Review, Nausea, Vomiting, Diarrhea, Constipation, Abdominal Pain, Bloody Stool, Poor Appetite, Heartburn, Regurgitation, Bloating, Lactose Intolerance, Melena, Bright Red Blood per Rectum, Other, See HPI Exam - Vitals Vital Signs: Vital Signs Temperature 98.5 F Temperature Source Temporal Artery Scan Pulse Rate [Pulse Oximeter] 134 Pulse Rate 109 Respiratory Rate 26 Blood Pressure [Left Arm] 126/99 Blood Pressure 125/66 Pulse Ox 92 Oxygen Flow Rate 4 Oxygen Delivery Method Non-Rebreather Mask Height 6 ft Weight 240 lb - General General Appearance: No Acute Distress, Cooperative - Eye Eye Exam: POSITIVE: Normal Appearance, PERRL, EOMI, No Scleral Icterus - Neck Neck Exam: Normal Inspection, Full ROM, No Tenderness, No Lymphadenopathy, No Thyromegaly, JVP is not Raised - Respiratory Respiratory Exam: POSITIVE: Clear to Auscultation - Bilaterally, Breathing Non Labored, Normal To Percussion, Normal to Percussion and Palpation, Decreased Breath Sounds - Cardiovascular Cardiovascular Exam: POSITIVE: RRR, No Murmur, No Clicks, No Gallops, No Rubs, PMI Non-Displaced - GI/Abdominal GI/Abdominal Exam: POSITIVE: Normal Bowel Sounds, Non Tender, Non Distended, Soft, No Masses, No Hepatomegaly, No Splenomegaly, No Organomegaly - Extremities Extremities Exam: POSITIVE: No Clubbing Present, No Edema Present Results - Labs CBC and BMP: 01/08/19 09:15 01/08/19 09:15 Assessment and Plan - Patient Problems (1) Pneumonia Current Visit: Yes Status: Acute Comment: Patient will be started on cefepime continued considering is immunosuppressed on chronic steroids continue duo nebs and other home medication for other medical issues which are all stable CT scan of his chest was reviewed Code(s): J18.9 - Pneumonia, unspecified organism
[2019-01-08] MEDS ORDERED: LIDOCAINE W/ SODIUM BICARB 0.5 ML SYR SUBD PRN (00:50)
[2019-01-08] MEDS ORDERED: BENZONATATE 100 MG CAPSULE PO PRN (00:50)
[2019-01-08] MEDS ORDERED: FUROSEMIDE 10 MG/1 ML - 4 ML IVP ONE (00:50)
[2019-01-08] MEDS: Cefepime Inj 2 GM in Sodium Chloride 0.9% 100 ML IV SCH ×3 (01:25→16:32)
[2019-01-08] MEDS: HEPARIN 5000 UNIT/1 ML SUBCUT SCH ×3 (01:27→16:32)
[2019-01-08] MEDS ORDERED: CEFEPIME 2 GM VIAL ONE ×2 (01:29→16:16)
[2019-01-08] MEDS: IPRATROPIUM/ALBUTEROL SULFATE 3 ML NEB NEB ONE (01:43)
--- NOTE | 2019-01-08 03:10 | PDOC ---
General Adult HPI - General Chief Complaint: Respiratory Complaint Stated Complaint: DYSPNEA Date Seen by Provider: 01/07/19 Time Seen by Provider: 22:00 Source: POSITIVE: Patient, EMS Exam Limitations: POSITIVE: No limitations Nurse's Notes Reviewed & Considered: Yes EMS Report Reviewed & Considered: Verbal - History of Present Illness Initial Comment: The patient is a 78-year-old male who is brought to the emergency room by ambulance. Patient states that for approximately the past day he has been p rogressively short of breath. He states he's had some cough. No known fevers or chills. Review of old records shows that he has been admitted for COPD in the past. He states he has a history of polycythemia and hypertension. He's had a prostatectomy. He states he used to smoke. He called the ambulance and on their arrival the patient reportedly had a SaO2 of 60%. He was placed on a nonrebreather mask and was given a nebulizer treatment. Oxygen saturation on nonrebreather mask on presentation to the emergency room was 92%. He denies any chest pain. Have you received a tetanus shot in the past 10 years?: Yes Body Location Affected: REPORTS: Chest Timing: REPORTS: Gradual, Getting Worse Duration: <24 hours Severity: Moderate Quality: REPORTS: Other (Patient denies any pain anywhere) Context: REPORTS: None Modifying Factors: improves with: Coughing Similar Symptoms Previously: No Recent Care Received: REPORTS: Denies Any Prior Injuries Related to Current Complaint?: No - Patient Home Medications Home Medications: Home Medications Oxygen (O2) 3 l NASAL continous #3 unit 03/02/13 ipratropium-albuterol 0.5 mg-3 mg(2.5 mg base)/3 mL nebulization soln 3 ml INH QID ml 12/04/17 umeclidinium 62.5 mcg/actuation blister powder for inhalation 1 inh INH QDAY #30 ea 02/27/18 Albuterol 17 gm IH Q4H PRN #1 aer.refill 04/24/18 azelastine 137 mcg (0.1 %) nasal spray aerosol 1 spray INASL BID #30 ml 09/17/18 doxycycline hyclate 100 mg tablet 100 mg PO BID #14 tab 10/22/18 fluticasone fur. 100 mcg-umeclid 62.5 mcg-vilant 25 mcg inhalat.powder 1 inh INH QDAY #28 ea 10/22/18 prednisone 20 mg tablet 20 mg PO QDAY #30 tab 10/22/18 pravastatin 80 mg tablet 80 mg PO QHS #90 tab 11/10/18 fenofibrate nanocrystallized 48 mg tablet 48 mg PO QDAY #90 tab 11/26/18 - Patient Allergies Allergies/Adverse Reactions: Allergies Allergy/AdvReac Type Severity Reaction Status Date / Time testosterone AdvReac NOT Verified 01/07/19 22:25 APPLICABLE Past Medical History - heen HEENT History: Cataracts, Hard of Hearing Additional HEENT History: NO TEETH Cardiovascular History: Hypertension, Hyperlipidemia Respiratory History: Asthma, COPD, Pneumonia, Sleep Apnea, Home Oxygen Use, Home CPAP Use, Snoring Gastrointestinal History: Other (please comment) Additional Gastrointestinal History: COLON POLYPS/ HEMORRHOIDS Genitourinary History: Other (please comment) Additional Genitourinary History: Prostate CA Endocrine History: Denies History Musculoskeletal History: Arthritis Prosthesis or Implant: No Neurological History: Seizures Additional Neurological History: 1986 seizure Blood Disorders: Denies History Additional Blood Disorders History: POLYCYTHEMIA, 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 Psychiatric History: Denies History History of Sexually Transmitted Diseases: No Cancer History: Other (please comment) Cancer Treatment / Date(s) of Treatment: SURGERY In Past Year Been Physically Harmed or Verbally Threatened: No History of MDRO: No History of Other Communicable Diseases: No Tobacco Use: Former Smoker Alcohol Use: None In the Past 12 Months, Have Used or Abuse Any Substance: None Previous Surgical History: Yes Type / Date of Surgery: RADICAL PROSTATECTOMY/ RIGHT CATARACT/Colonoscopy, Skin CA removed/Stem Cell transplant 2015 Anesthesia Reactions: No Malignant Hyperthermia: No Significant Family History: No pertinent family hx Past Medical History Reviewed: Reviewed - No Changes ROS - Limitations ROS Limitations: No Limitations Constitution: REPORTS: Weakness Cardiovascular: REPORTS: Denies Cardiac Symptoms Respiratory: REPORTS: Cough Non Productive, Shortness Of Breath Neurological: REPORTS: Denies Neuro Symptoms Gastrointestinal: REPORTS: Denies GI Symptoms Endocrine: REPORTS: Denies Symptoms Musculoskeletal: REPORTS: Denies MS Symptoms Genitourinary: REPORTS: Denies Symptoms Eyes: REPORTS: Denies Symptoms ENT: REPORTS: Denies Symptoms Skin: REPORTS: Denies Skin Symptoms Lympathic: REPORTS: Denies Lympathic Symptoms Immunologic: POSITIVE: Denies Symptoms Psychiatric: POSITIVE: Denies Psych Symptoms General Adult Exam - General Appearance General Appearance: POSITIVE: Alert, Cooperative, No Acute Distress, No Evidence of Trauma - HEENT HEENT: POSITIVE: Head Inspection Nml, Eyes Inspection Nml, Ears Inspection Nml, Nose Inspection Nml, Oral/Dental Inspect. Nml, Pharynx Inspect. Nml, PERRL, EOMI - Pupils Pupil Size: 3 mm: Bilateral - Neck Neck: POSITIVE: Normal Inspection, Thyroid Normal - Respiratory Respiratory: POSITIVE: Chest Non-Tender, Rales (Right lung base). NEGATIVE: Breath Sounds Normal, Wheezes - Cardiovascular Cardiovascular: POSITIVE: Regular Rate & Rhythm (Sinus tachycardia the 120/m), Tachycardia (1 20/m) Peripheral Pulses: Radial (R): 2+, Radial (L): 2+ - Abdomen Abdomen: Soft: (All Quadrants), Normal Bowel Sounds: (All Quadrants), Denies Tenderness: (All Quadrants), No Splenomegaly: (All Quadrants), No Hepatomegaly: (All Quadrants), No Guarding: (All Quadrants), No Rebound: (All Quadrants), No Palpable Pulse: (All Quadrants), No Palpabale Mass: (All Quadrants), No Distention: (All Quadrants), No Rigidity: (All Quadrants) - Back Back: POSITIVE: Normal Inspection. NEGATIVE: CVA Tenderness, Thoracic Tenderness, Lumbosacral Tenderness - Skin Skin: POSITIVE: Normal Color, Warm, Dry, No Rash - Extremities Extremity: Non-Tender: (All Extremities), Normal ROM: (All Extremities), Normal Inspection: (All Extremities) - Neurological / Psychological Neurological: POSITIVE: Affect Apporpriate, Oriented X3, supply teacher Normal As Tested, Motor Normal, Sensation Normal General Adult Progress - Results Reviewed by me Xrays/CTs/US Reviewed by me: Yes Discussed with Radiologist: Yes Radiology Findings: Chest x-ray shows a right middle lobe and right lower lobe pneumonia. CTA chest shows some consolidation in the right middle and right lower lobe; no PE Lab Results Reviewed by Me: Yes (blood cultures drawn) Lab Results:: Laboratory Results 01/07/19 01/07/19 01/07/19 22:30 22:30 22:30 WBC RBC Hgb Hct MCV MCH MCHC RDW Std Deviation RDW Coeff of Vamshi Plt Count MPV Immature Gran % (Auto) Neut % (Auto) Lymph % (Auto) Sevier % (Auto) Eos % (Auto) Baso % (Auto) Immature Gran # (Auto) Neut # (Auto) Lymph # (Auto) Sevier # (Auto) Eos # (Auto) Baso # (Auto) WBC Morphology Comment Plt Morphology Comment RBC Morph Comment ESR 27 H D-Dimer VBG pH VBG pCO2 VBG HCO3 VBG Base Excess Sodium Potassium Chloride Carbon Dioxide Anion Gap BUN Creatinine BUN/Creatinine Ratio Glucose Calculated Osmolality Calcium Magnesium 1.8 Total Bilirubin AST ALT Alkaline Phosphatase Troponin I < 0.012 C-Reactive Protein 8.1 H NT-Pro-B Natriuret Pep 488 H Total Protein Albumin Globulin Albumin/Globulin Ratio Ur Collection Type Urine Color Urine Clarity Urine pH Ur Specific Spring Urine Protein Urine Glucose (UA) Urine Ketones Urine Occult Blood Urine Nitrate Urine Bilirubin Urine Urobilinogen Ur Leukocyte Esterase Urine RBC Urine WBC Ur Squamous Epith Cells Ur Renal Epithelial Cell Urine Crystals Urine Bacteria Urine Casts Urine Mucus Urine Trichomonas Urine Yeast Ur Culture Indicated? 01/07/19 01/07/19 01/07/19 22:30 22:30 22:30 WBC 17.86 H RBC 4.27 L Hgb 12.6 L Hct 40.2 L MCV 94.1 H MCH 29.5 MCHC 31.3 L RDW Std Deviation 47.5 RDW Coeff of Vamshi 14.3 Plt Count 257 MPV 9.5 Immature Gran % (Auto) 0.3 Neut % (Auto) 80.8 H Lymph % (Auto) 9.6 L Sevier % (Auto) 8.6 Eos % (Auto) 0.5 Baso % (Auto) 0.2 Immature Gran # (Auto) 0.05 Neut # (Auto) 14.44 Lymph # (Auto) 1.71 Sevier # (Auto) 1.54 H Eos # (Auto) 0.09 Baso # (Auto) 0.03 WBC Morphology Comment Normal morphology Plt Morphology Comment Normal morphology RBC Morph Comment Normal morphology ESR D-Dimer 401 H VBG pH 7.41 VBG pCO2 37 L VBG HCO3 23 VBG Base Excess -2 Sodium Potassium Chloride Carbon Dioxide Anion Gap BUN Creatinine BUN/Creatinine Ratio Glucose Calculated Osmolality Calcium Magnesium Total Bilirubin AST ALT Alkaline Phosphatase Troponin I C-Reactive Protein NT-Pro-B Natriuret Pep Total Protein Albumin Globulin Albumin/Globulin Ratio Ur Collection Type Urine Color Urine Clarity Urine pH Ur Specific Spring Urine Protein Urine Glucose (UA) Urine Ketones Urine Occult Blood Urine Nitrate Urine Bilirubin Urine Urobilinogen Ur Leukocyte Esterase Urine RBC Urine WBC Ur Squamous Epith Cells Ur Renal Epithelial Cell Urine Crystals Urine Bacteria Urine Casts Urine Mucus Urine Trichomonas Urine Yeast Ur Culture Indicated? 01/07/19 01/07/19 22:30 23:38 WBC RBC Hgb Hct MCV MCH MCHC RDW Std Deviation RDW Coeff of Vamshi Plt Count MPV Immature Gran % (Auto) Neut % (Auto) Lymph % (Auto) Sevier % (Auto) Eos % (Auto) Baso % (Auto) Immature Gran # (Auto) Neut # (Auto) Lymph # (Auto) Sevier # (Auto) Eos # (Auto) Baso # (Auto) WBC Morphology Comment Plt Morphology Comment RBC Morph Comment ESR D-Dimer VBG pH VBG pCO2 VBG HCO3 VBG Base Excess Sodium 138 Potassium 4.4 Chloride 98 Carbon Dioxide 26 Anion Gap 14 BUN 19 Creatinine 1.3 BUN/Creatinine Ratio 14.61 Glucose 249 H Calculated Osmolality 295.0 H Calcium 8.9 Magnesium Total Bilirubin 0.6 AST 21 ALT 26 Alkaline Phosphatase 76 Troponin I C-Reactive Protein NT-Pro-B Natriuret Pep Total Protein 6.7 Albumin 3.9 Globulin 2.8 Albumin/Globulin Ratio 1.30 Ur Collection Type Clean catch urine Urine Color Yellow Urine Clarity Clear Urine pH 5.5 Ur Specific Spring 1.025 Urine Protein 100 A Urine Glucose (UA) 100 Urine Ketones Trace A Urine Occult Blood Negative Urine Nitrate Negative Urine Bilirubin Small Urine Urobilinogen 1.0 Ur Leukocyte Esterase Negative Urine RBC None Urine WBC None Ur Squamous Epith Cells Few Ur Renal Epithelial Cell None Urine Crystals None Urine Bacteria None Urine Casts None Urine Mucus Few Urine Trichomonas None Urine Yeast None Ur Culture Indicated? Culture not set CBC and BMP: 01/07/19 22:30 01/07/19 22:30 EKG Interpreted/Reviewed By Me:: Yes (sinus tachycardia at 1 27/m) EKG Interpretation:: POSITIVE: Normal Sinus Rhythm, Normal Intervals, Normal Marissa, Normal QRS, Normal ST/T, Abnormal EKG (Sinus tachycardia). NEGATIVE: Normal Rate (Sinus tachycardia) - Patient's Progress Pain Medication Addressed: POSITIVE: Not Applicable School/Work Release Addressed: POSITIVE: Not Applicable Re-Examine Time: 00:00 Re-Examine Comment: Patient given 2 g of Rocephin IV. Patient is maintaining oxygen saturation at around 94% on nonrebreather mask. Patient given a DuoNeb nebulizer treatment. Pulse down to 100. Case discussed with hospitalist and derrell encarnacion admitted for further evaluation and treatment. Status: POSITIVE: Improved, Re-Examined Antibiotics Given: Yes (Rocephin, 2 g IV) Quality Measure Initiative: CAP: POSITIVE: SaO2, VS, Antibiotic(s), BC, CXR or CT - Consult Consult (If Yes, Name of Consulting MD & Time Called): Yes (Dr. Rosales, 0000) Consulting MD will see pt:: POSITIVE: [facility] [place] Admit Counseled: POSITIVE: Patient, RE: Lab Results, RE: Radiology Results, RE: DX, RE: Need for F/U Patient Care Time - Estimated PCT Patient Care Time (In Minutes): 55 Vital Signs - Recent Vital Signs Vital Signs: Vital Signs (Last 8 hours) Temp Pulse Pulse Resp BP BP Pulse Ox 01/08/19 00:20 98.5 F 109 H 26 H 125/66 92 01/07/19 23:45 110 H 24 121/63 92 01/07/19 23:30 118 H 28 H 111/63 92 01/07/19 23:15 120 H 28 H 93 01/07/19 23:00 121 H 32 H 120/60 93 01/07/19 22:45 125 H 32 H 96 01/07/19 22:37 125 H 22 01/07/19 22:36 125 H 26 H 93 01/07/19 22:30 126 H 36 H 125/59 94 01/07/19 22:15 97.3 F 130 H 38 H 126/52 94 01/07/19 21:56 97.8 F 134 H 40 H 126/99 92 - VS Reviewed Vital Signs Reviewed: Yes Discharge Clinical Impression: Pneumonia Discharge Disposition: Admit to Inpatient Condition: Fair Date Decision to Admit to Inpatient: 01/07/19 Time Decision to Admit to Inpatient: 23:55
[2019-01-08] MEDS: IPRATROPIUM/ALBUTEROL SULFATE 3 ML NEB NEB SCH ×5 (05:37→18:51)
--- NOTE | 2019-01-08 07:34 | DI ---
XR CXR 2VW PA/LAT 01/07/2019 10:15 PM History: [facility] [place] [facility] [place]dyspnea Comparison: 04/23/2018. Findings: AP and lateral views of the chest demonstrate right lung base consolidation. There is no pn eumothorax or pleural effusion. The cardiomediastinal silhouette is normal in size with atheromatous calcifications in the arch of the thoracic aorta. The osseous structures are not significantly change d. Impression: Right lung base consolidation. Repeat imaging is recommended 6 weeks following completio n of therapy in order to ensure resolution.
[2019-01-08] MEDS: predniSONE Tab 20 MG TAB PO SCH (08:52)
[2019-01-08] MEDS: ASCORBIC ACID Chewable 500 MG TABLET PO SCH (08:52)
[2019-01-08 09:44] LABS: BASOPHILS # (AUTO) 0.03 10*3/UL; BASOPHILS % (AUTO) 0.2 % (0-1); EOSINOPHILS # (AUTO) 0.06 10*3/UL; EOSINOPHILS % (AUTO) 0.4 % (0-8); Hematocrit [HCT] 39.8 % (42.0-52.0); Hemoglobin [HGB] 12.5 g/dL (14.0-18.0); LYMPHOCYTES # (AUTO) 1.65 10*3/uL; MEAN CORPUSCULAR HEMOGLOBIN 29.6 PG (27-31); MEAN CORPUSCULAR HGB CONC 31.4 g/dL (33-37); MEAN CORPUSCULAR VOLUME 94.3 FL (80-90); MEAN PLATELET VOLUME 9.8 FL (7.4-12.2); MONOCYTES # (AUTO) 1.53 10*3/UL (0.3-0.8); MONOCYTES % (AUTO) 9.8 % (5-15); NEUTROPHILS # (AUTO) 12.29 10*3/UL; NEUTROPHILS % (AUTO) 78.6 % (50-80); RED BLOOD COUNT 4.22 10^6/uL (4.70-6.10)
[2019-01-08 09:45] LABS: PLATELET MORPHOLOGY COMMENT NORMAL MORPHOLOGY (NORM); RBC MORPHOLOGY COMMENT NORMAL MORPHOLOGY (NORM); WBC MORPHOLOGY COMMENT NORMAL MORPHOLOGY (NORM)
[2019-01-08 09:51] LABS: BLOOD UREA NITROGEN 18 mg/dL (7-22); BUN/CREATININE RATIO 13.84 (6-20); SERUM ALBUMIN 3.6 g/dL (3.5-4.8)
[2019-01-08] MEDS ORDERED: Sodium Chloride 0.9% 100 ML IV ONE (16:17)
[2019-01-09] MEDS: HEPARIN 5000 UNIT/1 ML SUBCUT SCH ×3 (00:47→17:26)
[2019-01-09] MEDS: Cefepime Inj 2 GM in Sodium Chloride 0.9% 100 ML IV SCH ×3 (00:47→17:26)
[2019-01-09 04:29] LABS: BASOPHILS # (AUTO) 0.01 10*3/UL; BASOPHILS % (AUTO) 0.1 % (0-1); EOSINOPHILS # (AUTO) 0.04 10*3/UL; EOSINOPHILS % (AUTO) 0.4 % (0-8); Hemoglobin [HGB] 11.7 g/dL (14.0-18.0); LYMPHOCYTES # (AUTO) 1.68 10*3/uL; MEAN CORPUSCULAR HEMOGLOBIN 29.3 PG (27-31); MEAN CORPUSCULAR HGB CONC 30.8 g/dL (33-37); MEAN PLATELET VOLUME 9.4 FL (7.4-12.2); MONOCYTES # (AUTO) 1.02 10*3/UL (0.3-0.8); MONOCYTES % (AUTO) 9.9 % (5-15); NEUTROPHILS # (AUTO) 7.57 10*3/UL; NEUTROPHILS % (AUTO) 73.1 % (50-80)
[2019-01-09 04:50] LABS: PLATELET MORPHOLOGY COMMENT NORMAL MORPHOLOGY (NORM); RBC MORPHOLOGY COMMENT NORMAL MORPHOLOGY (NORM); WBC MORPHOLOGY COMMENT NORMAL MORPHOLOGY (NORM)
[2019-01-09 04:55] LABS: BLOOD UREA NITROGEN 24 mg/dL (7-22); BUN/CREATININE RATIO 21.81 (6-20); SERUM ALBUMIN 3.5 g/dL (3.5-4.8)
[2019-01-09] MEDS: IPRATROPIUM/ALBUTEROL SULFATE 3 ML NEB NEB SCH ×4 (06:18→18:55)
[2019-01-09] MEDS: ASCORBIC ACID Chewable 500 MG TABLET PO SCH (09:04)
[2019-01-09] MEDS: predniSONE Tab 20 MG TAB PO SCH (09:04)
--- NOTE | 2019-01-09 11:52 | PDOC(PROG) ---
Interval History: Patient is doing much better today breathing better Objective : Data - Labs CBC and BMP: 01/09/19 04:24 01/09/19 04:24 Objective : Exam - General General Appearance: Cooperative - Respiratory Respiratory Exam: Clear to Auscultation - Bilaterally, Breathing Non Labored, Normal To Percussion, Normal to Percussion and Palpation, Decreased Breath Sounds - Cardiovascular Cardiovascular Exam: RRR, No Murmur, No Clicks, No Gallops, No Rubs, PMI Non- Displaced - GI/Abdominal GI/Abdominal Exam: Normal Bowel Sounds, Non Tender, Non Distended, Soft, No Masses, No Hepatomegaly, No Splenomegaly, No Organomegaly Assessment and Plan - Patient Problems (1) Pneumonia Current Visit: Yes Status: Acute Comment: Continue cefepime IV today's first days white count is down hopefully we will switch him to orals tomorrow and to be discharged home Code(s): J18.9 - Pneumonia, unspecified organism
--- NOTE | 2019-01-09 15:14 | PTI REPORT ---
Thank you for the referral of Mike Hess. He was seen on 01/09/19 for an inpatient evaluation secondary to generalized weakness. SUBJECTIVE: The patient is a 78-year-old male who presented to the emergency room yesterday via ambulance secondary to shortness of breath and a cough. Per patient's chart, he was found to have bilateral pneumonia and also has a history of COPD and prostate cancer. The patient reports that he has been on oxygen for 12+ years and usually is on four liters of oxygen at rest but bumps it up to 6 liters with activity including walking. The patient states that he likes to walk about 3-4 blocks a day and does do some work outside the home as well; he states whatever kind of activities he can find including helping with home remodels. The patient states that he lives here in [place] with his . She is currently on vacation in [place]. He states he is independent with ADLs. He has two steps into his home with a bilateral hand railing and he states that his home is two levels. The patient reports that prior to his recent hospitalization he was not using an assistive device and denies any history of falls in the last three months. The patient states that he does have left eye macular degeneration. The patient also reports that he has had pneumonia approximately 3-4 times within the last year. The patient is very willing to work with therapy as he'd like to get up and be able to shower. PAST MEDICAL HISTORY: Past medical history can be found in the patient's medical record. OBJECTIVE FINDINGS: General observations: The patient was alert and oriented to setting upon PT arrival. The patient was laying in bed on 4 liters of oxygen with his oxygen saturation at 92%. Bed mobility: The patient was able to transfer from supine to seated edge of bed with stand by assist x1 for safety. The patient demonstrated good seated edge of bed balance and maintained oxygen saturation around 90-92% on four liters seated edge of bed. Strength: While seated edge of bed a manual muscle test was performed for bilateral lower extremities and the patient demonstrates 4+/5 bilateral lower extremity strength. Transfers: A gait belt was placed around the patient and he was able to transfer from a seated to standing position. The patient demonstrated fair initial standing balance and did require contact guard assist x1 for safety. After ambulating, the patient transferred into the shower chair. Ambulation: We did bump the patient's oxygen up to 6 liters prior to ambulating 100 feet with contact guard assist x1. ASSESSMENT: The patient has fair rehab potential secondary to his age and past medical history. Problem List: Generalized weakness/deconditioning Difficulties with maintaining oxygen saturation with exertion Short-Term Goals: To be met by discharge from inpatient: Patient will be able to ambulate at least 150 feet safely, independent of an assistive device and maintain oxygen saturation at proper levels. Patient will be able to ambulate up and down one flight of stairs safely and independently. Patient will be able to tolerate 30 minutes of therapeutic exercise and maintain appropriate oxygen saturation. Long-Term Goals: To be met following discharge from inpatient: Patient may be seen by outpatient physical therapy if deemed necessary by time of discharge. TREATMENT PLAN: Patient will be seen B.I.D during the week and one time per day over the weekend as an inpatient to address the above goals and objectives. INITIAL TREATMENT: Treatment today consisted of the initial evaluation followed by one unit of functional activity. Following treatment a ELECTRONICS TECHNICIAN APPRENTICE took over in order to give the patient a shower. RYLEY
[2019-01-09] MEDS ORDERED: Sodium Chloride 0.9% 0 ML IV ONE (17:21)
[2019-01-10] MEDS: HEPARIN 5000 UNIT/1 ML SUBCUT SCH ×2 (00:38→08:39)
[2019-01-10] MEDS: Cefepime Inj 2 GM in Sodium Chloride 0.9% 100 ML IV SCH (00:38)
[2019-01-10 04:48] LABS: BASOPHILS # (AUTO) 0.01 10*3/UL; BASOPHILS % (AUTO) 0.1 % (0-1); EOSINOPHILS # (AUTO) 0.05 10*3/UL; EOSINOPHILS % (AUTO) 0.5 % (0-8); Hematocrit [HCT] 37.7 % (42.0-52.0); Hemoglobin [HGB] 11.3 g/dL (14.0-18.0); MEAN CORPUSCULAR HEMOGLOBIN 28.8 PG (27-31); MEAN CORPUSCULAR VOLUME 96.2 FL (80-90); MEAN PLATELET VOLUME 9.8 FL (7.4-12.2); MONOCYTES # (AUTO) 1.09 10*3/UL (0.3-0.8); MONOCYTES % (AUTO) 11.3 % (5-15); NEUTROPHILS # (AUTO) 6.61 10*3/UL; NEUTROPHILS % (AUTO) 68.4 % (50-80); RED BLOOD COUNT 3.92 10^6/uL (4.70-6.10)
[2019-01-10 04:54] LABS: BLOOD UREA NITROGEN 27 mg/dL (7-22); BUN/CREATININE RATIO 24.54 (6-20); PLATELET MORPHOLOGY COMMENT NORMAL MORPHOLOGY (NORM); RBC MORPHOLOGY COMMENT NORMAL MORPHOLOGY (NORM); SERUM ALBUMIN 3.5 g/dL (3.5-4.8); WBC MORPHOLOGY COMMENT NORMAL MORPHOLOGY (NORM)
[2019-01-10] MEDS: IPRATROPIUM/ALBUTEROL SULFATE 3 ML NEB NEB SCH ×2 (06:41→10:44)
[2019-01-10 07:18] VITALS: BP 140/69; TEMP 97
[2019-01-10] MEDS: predniSONE Tab 20 MG TAB PO SCH (08:39)
[2019-01-10] MEDS: ASCORBIC ACID Chewable 500 MG TABLET PO SCH (08:39)
[2019-01-10] MEDS ORDERED: Amoxicill/Clav 875/125mg Tab 1 TAB TAB PO SCH (09:00)
[2019-01-10 10:47] VITALS: RESP 20
--- NOTE | 2019-01-10 10:51 | DCSUMMARY ---
Hospitalization Summary Hospital Course: Final Discharge Diagnosis: Current Visit Problems Problem Status Onset Code Pneumonia Acute J18.9 Pneumonia Acute J18.9 Diagnostic Data, Laboratory Data, and Procedures of Signifigance: Laboratory Results 01/10/19 01/10/19 04:05 04:05 WBC 9.67 RBC 3.92 L Hgb 11.3 L Hct 37.7 L MCV 96.2 H MCH 28.8 MCHC 30.0 L RDW Std Deviation 47.0 RDW Coeff of Vamshi 14.0 Plt Count 268 MPV 9.8 Immature Gran % (Auto) 0.1 Neut % (Auto) 68.4 Lymph % (Auto) 19.6 [place] % (Auto) 11.3 Eos % (Auto) 0.5 Baso % (Auto) 0.1 Immature Gran # (Auto) 0.01 Neut # (Auto) 6.61 Lymph # (Auto) 1.90 [place] # (Auto) 1.09 H Eos # (Auto) 0.05 Baso # (Auto) 0.01 WBC Morphology Comment Normal morphology Plt Morphology Comment Normal morphology RBC Morph Comment Normal morphology Sodium 143 Potassium 4.5 Chloride 103 Carbon Dioxide 30 Anion Gap 10 BUN 27 H Creatinine 1.1 Estimated GFR Conservation Policy Analyst BUN/Creatinine Ratio 24.54 H Glucose 233 H Calculated Osmolality 307.0 H Calcium 9.0 Total Bilirubin 0.2 L AST 12 L ALT 28 Alkaline Phosphatase 86 Total Protein 6.5 Albumin 3.5 Globulin 3.0 Albumin/Globulin Ratio 1.10 L History and Physical pertinent to Admission: Course of Hospitalization: This very nice 78-year-old gentleman who comes in with community-acquired pneumonia. Elevated white count and shortness of breath patient turned around very quickly on cefepime with the normalization of his blood work patient feels back to his normal self his lungs are clear and he is dying to go home he said he feels great he will finish his by mouth antibiotics at home which I called in the front tear drugs for 5 more days of Augmentin he will follow-up with his primary care physician is also on chronic prednisone for emphysema resume all home meds On the date of discharge, the patient was examined: Gen.: No acute distress, alert, nontoxic Heart: Regular rate and rhythm, no murmurs, clicks, gallops, or rubs Lungs: Clear to auscultation bilaterally, breathing is nonlabored Abdomen/GI: Normal tones on auscultation, soft, nontender, nondistended Musculoskeletal/extremities: No clubbing, cyanosis, or edema Vitals reviewed and are listed below Vital Signs (24 hrs) 01/09/19 11:24 01/09/19 11:25 01/09/19 11:28 Temperature Pulse Rate 113 H 113 H Pulse Rate Pulse Oximeter Pulse Rate right index finger Respiratory Rate 20 20 Blood Pressure Left Arm Blood Pressure Right Arm Pulse Ox 90 Pulse Ox right index finger 90 01/09/19 13:00 01/09/19 14:52 01/09/19 14:53 Temperature 98.5 F Pulse Rate 96 96 Pulse Rate Pulse Oximeter 101 H Pulse Rate right index finger 89 Respiratory Rate 20 18 18 Blood Pressure Left Arm Blood Pressure Right Arm 166/69 Pulse Ox 92 92 Pulse Ox right index finger 92 01/09/19 15:00 01/09/19 16:59 01/09/19 17:00 Temperature Pulse Rate 100 Pulse Rate Pulse Oximeter 89 Pulse Rate right index finger 99 Respiratory Rate 24 Blood Pressure Left Arm Blood Pressure Right Arm 137/66 Pulse Ox 94 Pulse Ox right index finger 2 90 01/09/19 18:55 01/09/19 18:56 01/09/19 19:00 Temperature Pulse Rate 101 H 95 96 Pulse Rate Pulse Oximeter 84 Pulse Rate right index finger Respiratory Rate 24 18 20 Blood Pressure Left Arm Blood Pressure Right Arm Pulse Ox 88 Pulse Ox right index finger 93 01/09/19 19:14 01/09/19 21:00 01/09/19 23:00 Temperature 97.5 F Pulse Rate 93 Pulse Rate Pulse Oximeter 84 Pulse Rate right index finger 100 Respiratory Rate 20 Blood Pressure Left Arm Blood Pressure Right Arm 126/45 Pulse Ox 94 Pulse Ox right index finger 92 95 01/09/19 23:53 01/10/19 01:00 01/10/19 03:00 Temperature 96.8 F Pulse Rate 85 Pulse Rate Pulse Oximeter 93 Pulse Rate right index finger 95 85 Respiratory Rate 20 Blood Pressure Left Arm 120/42 Blood Pressure Right Arm Pulse Ox 94 Pulse Ox right index finger 96 97 01/10/19 04:00 01/10/19 04:38 01/10/19 05:04 Temperature 98.0 F Pulse Rate Pulse Rate Pulse Oximeter 85 Pulse Rate right index finger 103 H Respiratory Rate 20 Blood Pressure Left Arm 142/69 Blood Pressure Right Arm Pulse Ox 97 98 Pulse Ox right index finger 95 01/10/19 06:41 01/10/19 06:42 01/10/19 07:00 Temperature Pulse Rate 85 81 84 Pulse Rate Pulse Oximeter Pulse Rate right index finger 78 Respiratory Rate 18 18 20 Blood Pressure Left Arm Blood Pressure Right Arm Pulse Ox 94 Pulse Ox right index finger 92 01/10/19 07:15 01/10/19 10:44 01/10/19 10:45 Temperature 97 F Pulse Rate 96 96 Pulse Rate Pulse Oximeter 80 Pulse Rate right index finger Respiratory Rate 20 18 20 Blood Pressure Left Arm Blood Pressure Right Arm 140/69 Pulse Ox 92 93 Pulse Ox right index finger Assessment and Plan: 1. As per discharge assessments above 2. Disposition: Home 3. Condition on discharge, stable and improved. 4. Diet: regular diet 5. Activities: resume normal activities 6. Follow-Up: 1. PCP 2. 7. Medications at the Time of Discharge: Home Medications Medication Instructions Recorded Confirmed Oxygen (O2) 3 l NASAL continous #3 unit 03/02/13 01/07/19 azelastine 137 mcg (0.1 %) nasal 1 spray INASL BID #30 ml 09/17/18 01/07/19 spray aerosol fluticasone fur. 100 mcg-umeclid 1 inh INH QDAY #28 ea 10/22/18 01/07/19 62.5 mcg-vilant 25 mcg inhalat.powder pravastatin 80 mg tablet 80 mg PO QHS #90 tab 11/10/18 01/07/19 fenofibrate nanocrystallized 48 mg 48 mg PO QDAY #90 tab 11/26/18 01/07/19 tablet Imipramine HCl 2 tab PO BID 01/08/19 01/08/19 Levalbuterol Tartrate [XOPENEX HFA] 2 puff INHALATION Q4H PRN 01/08/19 01/08/19 Amoxicill/Clav 875/125mg 1 tab PO BID MEALS #10 tab 01/10/19 [Augmentin 875/125mg] 8. Time, care, counseling and coordination of care for this discharge is greater than 30 minutes. Exam - Vitals Vital Signs: Vital Signs Temperature 97 F Temperature Source Temporal Artery Scan Pulse Rate [Pulse Oximeter] 80 Pulse Rate [right index finger 78 ] Pulse Rate 96 Respiratory Rate 20 Blood Pressure [Right Arm] 140/69 Blood Pressure [Left Arm] 142/69 Blood Pressure 125/66 Pulse Ox [right index finger] 92 Pulse Ox 93 Oxygen Flow Rate [right index 4 finger] Oxygen Flow Rate 4 Oxygen Delivery Method [right Nasal Cannula index finger] Oxygen Delivery Method Nasal Cannula Height 6 ft Weight 212 lb Patient Problems - Patient Problem List (1) Pneumonia Current Visit: Yes Status: Acute Code(s): J18.9 - Pneumonia, unspecified organism Category: Medical
[2019-01-10 10:59] VITALS: O2SAT 92
--- NOTE | 2019-01-10 11:32 | PT.PROG ---
Progress Note Progress Note: Attempted physical therapy twice this morning. Pt refused to participate with therapy but did agree to walk tomorrow.
--- NOTE | 2019-01-12 15:34 | OTI REPORT ---
Thank you for the referral of Mike Hess. He was seen on 01/09/19 for an occupational therapy inpatient evaluation secondary to weakness. SUBJECTIVE: The patient is a 78-year-old male who was brought to the emergency room by ambulance secondary to shortness of breath and coughing. He has a history of COPD and a history of prostate cancer. Today he was on four liters of oxygen and his oxygen saturation was staying at 90-92%. The patient also was diagnosed with bilateral pneumonia. The patient does live with his who is currently on vacation. He denies any recent falls. He has left eye macular degeneration. The patient's goal is to get back home. PAST MEDICAL HISTORY: Past medical history can be found in the patient's medical record. OBJECTIVE FINDINGS: Bed mobility: The patient was able to come from supine to sit independently. Range of motion: While sitting edge of bed the patient had bilateral upper extremity active range of motion that was within functional limits. Strength: Upper extremity strength bilaterally was 4+/5 in all planes and ranges. Activities of daily living: The patient was able to don and doff his socks independently bilaterally. The patient was able to stand x3 minutes at the sink to complete hygiene activities. The patient required contact guard assist to complete a toilet transfer. Transfers: The patient required contact guard assist for sit to stand transfers. ASSESSMENT: The patient's main concern is his breathing. He does become very short of breath upon exertion and with activity. Problem List: Decreased balance Decreased endurance/activity tolerance Decreased ability to complete activities of daily living Short-Term Goals: To be met by discharge from inpatient: Patient will increase upper extremity strength to 5/5. Patient will learn three energy conservation techniques and apply them. Patient will be able to tolerate 10 minutes of functional stand activity while completing ADLs. Long-Term Goals: To be met following discharge from inpatient: Patient will return home demonstrating safety and independence with all ADLs and functional transfers. TREATMENT PLAN: Patient will be seen B.I.D during the week and one time per day over the weekend as an inpatient to address the above goals and objectives. INITIAL TREATMENT: Treatment today consisted of the initial evaluation activities only. Following treatment the patient was transferred back to bed. [facility]
== END 2019-01-10 11:46 | disposition home or self-care (01) | DRG 195 ==
LOC: ER 21:55 → MED/SURG 01-08 00:32
PROVIDERS: ADMIT Internal Medicine; ATTEND Internal Medicine

== ENCOUNTER 2019-01-22 10:57 | Inpatient (IN) ==
--- NOTE | 2019-01-22 10:19 | PDOC ---
Gen Adult / Medical Screen HPI - General Chief Complaint: General Medical Stated Complaint: shortness of breath Date Seen by Provider: 01/22/19 Time Seen by Provider: 10:19 Source: POSITIVE: Patient Exam Limitations: POSITIVE: No limitations - History of Present Illness Initial Comments: Mike is a 78-year-old male with a history of COPD recently admitted to the hospital for pneumonia presents to the emergency department with shortness of breath. Patient reports she got out of the hospital on Saturday and seemed to be doing well today he had what appeared to be an abrupt onset of shortness of breath. Patient reports he checked his heart rate and his pulses are is elevated and his oxygen levels were lower than usual. Patient has been on oxygen since being in the hospital but something seemed to have changed today. He denies any increase in coughing, fevers, chills. He denies nausea or vomiting. Patient denies any chest pain. Predominantly just feels very short of breath. - Patient Home Medications Home Medications: Home Medications Oxygen (O2) 3 l NASAL continous #3 unit 03/02/13 azelastine 137 mcg (0.1 %) nasal spray aerosol 1 spray INASL BID #30 ml 09/17/18 fluticasone fur. 100 mcg-umeclid 62.5 mcg-vilant 25 mcg inhalat.powder 1 inh INH QDAY #28 ea 10/22/18 pravastatin 80 mg tablet 80 mg PO QHS #90 tab 11/10/18 fenofibrate nanocrystallized 48 mg tablet 48 mg PO QDAY #90 tab 11/26/18 Imipramine HCl 2 tab PO BID 01/08/19 Levalbuterol Tartrate [XOPENEX HFA] 2 puff INHALATION Q4H PRN 01/08/19 - Patient Allergies Allergies/Adverse Reactions: Allergies Allergy/AdvReac Type Severity Reaction Status Date / Time testosterone AdvReac NOT Verified 01/22/19 08:55 APPLICABLE Past Medical History - heen HEENT History: Cataracts, Hard of Hearing Additional HEENT History: NO TEETH Cardiovascular History: Hypertension, Hyperlipidemia Respiratory History: Asthma, COPD, Pneumonia, Sleep Apnea, Home Oxygen Use, Home CPAP Use, Snoring Gastrointestinal History: Other (please comment) Additional Gastrointestinal History: COLON POLYPS/ HEMORRHOIDS Genitourinary History: Other (please comment) Additional Genitourinary History: Prostate CA Endocrine History: Denies History Musculoskeletal History: Arthritis Prosthesis or Implant: No Neurological History: Seizures Additional Neurological History: 1986 seizure Blood Disorders: Denies History Additional Blood Disorders History: POLYCYTHEMIA, 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 Psychiatric History: Denies History History of Sexually Transmitted Diseases: No Cancer History: Other (please comment) Cancer Treatment / Date(s) of Treatment: SURGERY History of MDRO: No History of Other Communicable Diseases: No Tobacco Use: Former Smoker Alcohol Use: None In the Past 12 Months, Have Used or Abuse Any Substance: None Previous Surgical History: Yes Type / Date of Surgery: RADICAL PROSTATECTOMY/ RIGHT CATARACT/Colonoscopy, Skin CA removed/Stem Cell transplant 2015 Anesthesia Reactions: No Malignant Hyperthermia: No Significant Family History: No pertinent family hx ROS - Limitations ROS Limitations: No Limitations Constitution: REPORTS: Denies Symptoms. DENIES: Chills, Fever Cardiovascular: REPORTS: Denies Cardiac Symptoms Respiratory: REPORTS: Shortness Of Breath Neurological: REPORTS: Denies Neuro Symptoms Gastrointestinal: REPORTS: Denies GI Symptoms Endocrine: REPORTS: Denies Symptoms Musculoskeletal: REPORTS: Denies MS Symptoms Genitourinary: REPORTS: Denies Symptoms Eyes: REPORTS: Denies Symptoms ENT: REPORTS: Denies Symptoms Skin: REPORTS: Denies Skin Symptoms Lympathic: REPORTS: Denies Lympathic Symptoms Immunologic: POSITIVE: Denies Symptoms Psychiatric: POSITIVE: Denies Psych Symptoms Gen Adult/Medical Screen Exam - General Appearance General Appearance: POSITIVE: Alert, Cooperative, No Acute Distress, No Evidence of Trauma - HEENT HEENT: POSITIVE: Head Inspection Nml, Eyes Inspection Nml - Neck Neck: POSITIVE: Normal Inspection - Respiratory Respiratory: POSITIVE: No Respiratory Distress, Other (Diminished breath sounds. No wheezing no crackles) - Cardiovascular Cardiovascular: POSITIVE: Regular Rate & Rhythm, No Murmur, No Gallop - Abdomen Additional Abdominal Details: Obese protuberant abdomen. No focal tenderness umbilical hernia noted normal bowel sounds - Back Back: POSITIVE: Normal Inspection - Neurological / Psychological Mental Status: POSITIVE: Mood Normal, Affect Normal Orientation: POSITIVE: Oriented x 3 - Skin Skin: POSITIVE: Normal Color, Warm - Extremities Additional Extremities Details: Trace edema in the lower extremities bilaterally Gen Adlt/Medical Scrn Progress - Results Reviewed by me Xrays/CTs/US Reviewed by me: Yes Discussed with Radiologist: Yes Lab Results Reviewed by Me: Yes CBC and BMP: 01/22/19 10:55 01/22/19 10:55 Lab Results:: Laboratory Results 01/22/19 01/22/19 01/22/19 10:55 10:55 10:55 WBC 18.70 H RBC 4.38 L Hgb 12.7 L Hct 41.4 L MCV 94.5 H MCH 29.0 MCHC 30.7 L RDW Std Deviation 46.5 RDW Coeff of Vamshi 14.2 Plt Count 268 MPV 8.9 Immature Gran % (Auto) 0.3 Neut % (Auto) 80.1 H Lymph % (Auto) 11.6 [place] % (Auto) 7.5 Eos % (Auto) 0.4 Baso % (Auto) 0.1 Immature Gran # (Auto) 0.05 Neut # (Auto) 14.98 Lymph # (Auto) 2.16 [place] # (Auto) 1.41 H Eos # (Auto) 0.08 Baso # (Auto) 0.02 WBC Morphology Comment Normal morphology Plt Morphology Comment Normal morphology RBC Morph Comment See comments VBG pH VBG pCO2 VBG HCO3 VBG Base Excess Sodium 142 Potassium 4.2 Chloride 98 Carbon Dioxide 29 Anion Gap 15 BUN 19 Creatinine 1.0 BUN/Creatinine Ratio 19.00 Glucose 132 H Calculated Osmolality 297.0 H Calcium 9.1 Total Bilirubin 0.5 AST 15 L ALT 28 Alkaline Phosphatase 91 Troponin I < 0.012 Total Protein 7.5 Albumin 4.4 Globulin 3.1 Albumin/Globulin Ratio 1.40 01/22/19 11:00 WBC RBC Hgb Hct MCV MCH MCHC RDW Std Deviation RDW Coeff of Vamshi Plt Count MPV Immature Gran % (Auto) Neut % (Auto) Lymph % (Auto) [place] % (Auto) Eos % (Auto) Baso % (Auto) Immature Gran # (Auto) Neut # (Auto) Lymph # (Auto) [place] # (Auto) Eos # (Auto) Baso # (Auto) WBC Morphology Comment Plt Morphology Comment RBC Morph Comment VBG pH 7.32 VBG pCO2 55 VBG HCO3 29 H VBG Base Excess 2 Sodium Potassium Chloride Carbon Dioxide Anion Gap BUN Creatinine BUN/Creatinine Ratio Glucose Calculated Osmolality Calcium Total Bilirubin AST ALT Alkaline Phosphatase Troponin I Total Protein Albumin Globulin Albumin/Globulin Ratio - Patient's Progress MDM / ED Course: Mike is a 78-year-old male who presents to the emergency department with shortness of breath. Vital signs at home are notable for hypoxia and tachycardia. Differential diagnosis includes but is not limited to pneumonia, pneumothorax, pulmonary embolism. Patient's chest x-ray does demonstrate what appears to be aspiration pneumonia and his white blood cell count has climbed which would be consistent with new infection. Blood cultures were drawn patient was given fluids and started on ceftriaxone and metronidazole. I will admit patient to the hospitalist for further treatment. Patient Care Time - Estimated PCT Patient Care Time (In Minutes): 50 Vital Signs - Recent Vital Signs Vital Signs: Vital Signs (Last 8 hours) Temp Pulse Pulse Resp BP BP Pulse Ox 01/22/19 12:31 114 H 28 H 01/22/19 12:30 110 H 26 H 92 01/22/19 11:38 95 19 94 01/22/19 11:36 96 25 H 94 01/22/19 11:34 94 17 93 01/22/19 11:32 96 20 94 01/22/19 11:30 93 24 94 01/22/19 11:28 101 H 17 94 01/22/19 11:26 93 28 H 94 01/22/19 11:24 96 25 H 94 01/22/19 11:22 94 24 175/91 95 01/22/19 11:20 95 25 H 95 01/22/19 11:18 99 26 H 95 01/22/19 11:16 95 23 94 01/22/19 11:14 96 24 95 01/22/19 11:12 98 18 95 01/22/19 11:10 97 13 95 01/22/19 11:08 99 16 96 01/22/19 11:06 99 96 01/22/19 11:04 100 96 01/22/19 11:02 96 176/100 95 01/22/19 11:00 98 22 96 01/22/19 10:58 97.8 F 101 H 117 H 28 H 184/96 89 01/22/19 10:56 101 H 96 01/22/19 10:54 102 H 95 01/22/19 10:52 111 H 184/96 91 01/22/19 10:51 117 H 86 - VS Reviewed Vital Signs Reviewed: Yes Discharge Clinical Impression: Aspiration pneumonia Qualifiers: Aspiration pneumonia type: unspecified Laterality: unspecified laterality Lung location: unspecified part of lung Qualified Code(s): J69.0 - Pneumonitis due to inhalation of food and vomit Discharge Disposition: Admit to Inpatient Follow Up With: KANA JACOBO [Primary Care Provider] - Date Decision to Admit to Inpatient: 01/22/19 Time Decision to Admit to Inpatient: 12:52
[2019-01-22 11:07] LABS: BASOPHILS # (AUTO) 0.02 10*3/UL; BASOPHILS % (AUTO) 0.1 % (0-1); EOSINOPHILS # (AUTO) 0.08 10*3/UL; EOSINOPHILS % (AUTO) 0.4 % (0-8); Hematocrit [HCT] 41.4 % (42.0-52.0); Hemoglobin [HGB] 12.7 g/dL (14.0-18.0); LYMPHOCYTES # (AUTO) 2.16 10*3/uL; MEAN CORPUSCULAR HGB CONC 30.7 g/dL (33-37); MEAN CORPUSCULAR VOLUME 94.5 FL (80-90); MEAN PLATELET VOLUME 8.9 FL (7.4-12.2); MONOCYTES # (AUTO) 1.41 10*3/UL (0.3-0.8); MONOCYTES % (AUTO) 7.5 % (5-15); NEUTROPHILS # (AUTO) 14.98 10*3/UL; NEUTROPHILS % (AUTO) 80.1 % (50-80); RED BLOOD COUNT 4.38 10^6/uL (4.70-6.10)
[2019-01-22 11:16] LABS: BLOOD UREA NITROGEN 19 mg/dL (7-22); SERUM ALBUMIN 4.4 g/dL (3.5-4.8)
[2019-01-22 11:17] LABS: VENOUS PH 7.32 (7.32-7.42)
[2019-01-22 11:20] LABS: PLATELET MORPHOLOGY COMMENT NORMAL MORPHOLOGY (NORM); RBC MORPHOLOGY COMMENT SEE COMMENTS (NORM); WBC MORPHOLOGY COMMENT NORMAL MORPHOLOGY (NORM)
--- NOTE | 2019-01-22 12:01 | EKG ---
[address] [address] Measurements Intervals [place] Rate: 101 P: 75 DC: 137 QRS: 49 QRSD: 94 T: 47 QT: 317 QTc: 375 Interpretive Statements SINUS TACHYCARDIA ABNORMAL RHYTHM ECG Compared to ECG 01/07/2019 22:28:20 T-wave abnormality no longer present Electronically Signed On 01-22-19 15:05:25 MDT by Ishmael Sanderson [email or web address]
[2019-01-22] MEDS ORDERED: ALBUTEROL SULFATE 2.5 MG/3 ML NEB ONE (12:21)
--- NOTE | 2019-01-22 12:39 | DI ---
CT ANGIOGRAM OF THE CHEST, 01/22/2019 11:01 AM : Clinical History: Dyspnea. Previous Exam: 01/07/2019. Technique: Scans from base of neck to lung bases with IV contrast. Bolus tracking protocol was used f or timing the injection. Non-MIPS and MIPS sagittal/coronal images generated. IV Contrast: 65 mL of Ultravist 370. Base of Neck: Normal. Nodes: Normal axillary, supraclavicular, mediastinal, and hilar lymph nodes. There are calcified subc arinal and bilateral hilar lymph nodes. Heart: Normal. Modest calcifications are present in the left mainstem and the proximal third of the L AD. Aorta: Normal thoracic aorta. No aneurysm or dissection. Pulmonary Arteries: No pulmonary emboli or pulmonary embolism with infarction. There is pulmonary art erial hypertension. Lungs: The right middle lobe pneumonia has almost completely cleared. The right lower lobe pneumonia has improved significantly but still persists. The patient has developed pneumonia in the left lower lobe since the previous exam. The posterior involvement is consistent with aspiration pneumonia. Mariah bronchial cuffing is present consistent with chronic bronchitis. Bullae are present throughout both l ungs indicating bullous emphysema. This patient has a combined pattern of emphysema and chronic bronc hitis.00 Effusion(s): None. Nodules: None. Bony Structures: Normal visualized portions of ribs, sternum, scapulae, clavicles, and shoulders. Nor mal visualized portions of thoracic spine. Limited Upper Abdomen: Normal adrenal glands and spleen. Normal limited views pancreas. Both the live r and spleen have numerous punctate calcifications and together with the hilar and mediastinal calcif ications, this patient most likely has had prior exposure to either TB or histoplasmosis. There is fa tty infiltration of the liver. READIN. No pulmonary emboli or evidence of pulmonary embolism with infarction. There is pulmonary arteria l hypertension. 2. New left lower lobe pneumonia with improvement of the right middle and right lower lobe pneumonia . These findings represent aspiration pneumonia. 3. 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 4. Bilateral hilar, mediastinal, liver, and splenic calcifications consistent with previous exposure to either TB or histoplasmosis. 5. Fatty infiltration of the liver.
[2019-01-22] MEDS ORDERED: cefTRIAXone Inj 2 GM in Sodium Chloride 0.9% 100 ML IV ONE (12:44)
[2019-01-22] MEDS ORDERED: metroNIDAZOLE 500mg (Premix) 500 MG/100 ML BAG IV ONE (12:44)
[2019-01-22] MEDS ORDERED: Sodium Chloride 0.9% 1,000 ML PRIMARY IV ONE (12:50)
--- NOTE | 2019-01-22 14:31 | PDOC ---
HPI - History of Present Illness Date of Service: 01/22/19 Time of Service: 15:00 Chief Complaint: Shortness of breath a few days duration History of Present Illness: This is a 78 years old male with medical history significant for history of COPD on oxygen at home, history of hyperlipidemia, history of sleep apnea and recent admission to our hospital for pneumonia he said he was discharged home after treatment for pneumonia did well for 2 days and then he started to have shortness of breath again with some cough which is not significant he is been using his breathing treatment because of continuous symptoms he came into the ER evaluation did reveal pneumonia on the left side and improvement pneumonia that he had on the right side he was given antibiotic and was admitted. He is denying chest pain, nausea or vomiting. He did report that he has been having problem with swallowing food and he saw Dr. Calixs on the for dysphagia and the plan for him was to have a scope tomorrow. Past Medical History Medical History: 1. COPD, normally on 4-5 L per nasal cannula oxygen, status post stem cell transplant therapy in [place] and again in [place]. 2. Hypertension. 3. History of prostate cancer status post radical prostatectomy. 4. Polycythemia. 5. Obstructive sleep apnea, on CPAP therapy. 6. Some skin cancers. 7. Admission December 2018 for pneumonia Surgical History: Radical prostatectomy, skin cancer removals Pertinent Family History: Father of a massive myocardial infarction. The patient's mother is still alive at 98. Past Social History: Patient did smoke in the past, quit. for 33 years. This is his second marriage. Retired and lives in [place], [place]. Does not drink alcohol. Tobacco Use: Former Smoker In the Past 12 Months, Have Used or Abuse Any of the Following Substance: None Medication / Allergies Home Medications: Home Medications Medication Instructions Recorded Confirmed Oxygen (O2) 3 l NASAL continous #3 unit 03/02/13 01/22/19 azelastine 137 mcg (0.1 %) nasal 1 spray INASL BID #30 ml 09/17/18 01/22/19 spray aerosol fluticasone fur. 100 mcg-umeclid 1 inh INH QDAY #28 ea 10/22/18 01/22/19 62.5 mcg-vilant 25 mcg inhalat.powder pravastatin 80 mg tablet 80 mg PO QHS #90 tab 11/10/18 01/22/19 fenofibrate nanocrystallized 48 mg 48 mg PO QDAY #90 tab 11/26/18 01/22/19 tablet Imipramine HCl 2 tab PO BID 01/08/19 01/22/19 Levalbuterol Tartrate [XOPENEX HFA] 2 puff INHALATION Q4H PRN 01/08/19 01/22/19 Allergies/Adverse Reactions: Allergies Allergy/AdvReac Type Severity Reaction Status Date / Time testosterone AdvReac NOT Verified 01/22/19 08:55 APPLICABLE Review of Systems - Review of Systems All Systems: Reviewed & No Additional Complaints Except as Stated Exam - Vitals Vital Signs: Vital Signs Temperature 97.8 F Temperature Source Temporal Artery Scan Pulse Rate [Pulse Oximeter] 117 Pulse Rate 114 Respiratory Rate 28 Blood Pressure [Left Arm] 184/96 Blood Pressure 175/91 Pulse Ox 92 Oxygen Delivery Method Nasal Cannula Height 5 ft 10 in Weight 210 lb - General General Appearance: Cooperative - Head Head Exam: Normal Inspection - Eye Eye Exam: POSITIVE: Normal Appearance - ENT ENT Exam: POSITIVE: Normal Exam - Respiratory Additional Respiratory Exam Details: Decreased air entry crackles heard at the bases - Cardiovascular Cardiovascular Exam: POSITIVE: RRR - GI/Abdominal GI/Abdominal Exam: POSITIVE: Normal Bowel Sounds, Non Tender, Non Distended, Soft, No Organomegaly - Rectal Rectal Exam: POSITIVE: Deferred - External Exam: POSITIVE: Deferred - Extremities Extremities Exam: POSITIVE: Normal Inspection - Back Back Exam: POSITIVE: Normal Inspection - Neurological Neurological Exam: POSITIVE: Alert, Oriented x 3, CN II-XII Intact, No Facial Droop, Speech Intact / Clear, Moves All Extremities Equally - Psychiatric Psychiatric Exam: POSITIVE: Normal Affect - Integumentary Integumentary Exam: POSITIVE: Normal Color Results - Labs CBC and BMP: 01/22/19 10:55 01/22/19 10:55 - EKG Data -: EKG Interpreted by Me Rate: Normal, Tachycardia - Imaging Status: Report Reviewed by Me (CT chest 1. No pulmonary emboli or evidence of pulmonary embolism with infarction. There is pulmonary arterial hypertension. 2. New left lower lobe pneumonia with improvement of the right middle and right lower lobe pneumonia. These findings represent aspiration pneumonia. 3. 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 4. Bilateral hilar, mediastinal, liver, and splenic calcifications consistent with previous exposure to either TB or histoplasmosis. 5. Fatty infiltration of the liver) Assessment and Plan - Patient Problems (1) Aspiration pneumonia Current Visit: Yes Status: Acute Comment: Likely he has a recurrence of pneumonia and with his history of dysphagia this suggests the probability of aspiration, will order a swallow evaluation, will put him on Zosyn. I think there is an also an element of exacerbation of COPD who put on some steroid. In addition to bronchodilator treatment. Code(s): J69.0 - Pneumonitis due to inhalation of food and vomit Qualifiers: Aspiration pneumonia type: unspecified Laterality: unspecified laterality Lung location: unspecified part of lung Qualified Code(s): J69.0 - Pneumonitis due to inhalation of food and vomit (2) Hyperlipidemia Current Visit: No Status: Chronic Comment: Same medication (3) COPD exacerbation Current Visit: No Status: Chronic Comment: We'll treat pneumonia, use bronchitis or treatment and steroid. Code(s): J44.1 - Chronic obstructive pulmonary disease with (acute) exacerbation
[2019-01-22] MEDS ORDERED: LIDOCAINE W/ SODIUM BICARB 0.5 ML SYR SUBD PRN (15:49)
[2019-01-22] MEDS ORDERED: ONDANSETRON 4 MG/2 ML VIAL IVP PRN (15:49)
[2019-01-22] MEDS ORDERED: ALBUTEROL SULFATE 2.5 MG/3 ML NEB PRN (15:55)
[2019-01-22] MEDS: Piperacillin/Tazobactam Inj 4.5 GM in Sodium Chloride 0.9% 100 ML IV SCH ×2 (16:51→21:03)
[2019-01-22] MEDS: methylPREDNISolone 40 MG/1 ML VIAL IVP SCH ×2 (16:52→21:03)
[2019-01-22] MEDS: Lactated Ringers 1,000 ML PRIMARY IV SCH (16:54)
[2019-01-22 17:56] LABS: VENOUS PH 7.33 (7.32-7.42)
[2019-01-22] MEDS: IPRATROPIUM/ALBUTEROL SULFATE 3 ML NEB NEB SCH (18:44)
[2019-01-22] MEDS: Pravastatin 80mg Tab PO SCH (21:03)
[2019-01-23] MEDS: methylPREDNISolone 40 MG/1 ML VIAL IVP SCH ×3 (03:52→21:00)
[2019-01-23] MEDS: Piperacillin/Tazobactam Inj 4.5 GM in Sodium Chloride 0.9% 100 ML IV SCH ×4 (03:52→21:00)
[2019-01-23] MEDS: Lactated Ringers 1,000 ML PRIMARY IV SCH (03:53)
[2019-01-23 04:54] LABS: BASOPHILS # (AUTO) 0.02 10*3/UL; BASOPHILS % (AUTO) 0.1 % (0-1); EOSINOPHILS # (AUTO) 0.01 10*3/UL; EOSINOPHILS % (AUTO) 0.1 % (0-8); Hemoglobin [HGB] 12.4 g/dL (14.0-18.0); MEAN CORPUSCULAR HEMOGLOBIN 29.8 PG (27-31); MEAN CORPUSCULAR HGB CONC 31.8 g/dL (33-37); MEAN CORPUSCULAR VOLUME 93.8 FL (80-90); MEAN PLATELET VOLUME 9.1 FL (7.4-12.2); MONOCYTES # (AUTO) 0.72 10*3/UL (0.3-0.8); MONOCYTES % (AUTO) 3.7 % (5-15); NEUTROPHILS # (AUTO) 18.03 10*3/UL; NEUTROPHILS % (AUTO) 91.3 % (50-80); RED BLOOD COUNT 4.16 10^6/uL (4.70-6.10)
[2019-01-23 05:02] LABS: PLATELET MORPHOLOGY COMMENT NORMAL MORPHOLOGY (NORM); RBC MORPHOLOGY COMMENT NORMAL MORPHOLOGY (NORM); WBC MORPHOLOGY COMMENT NORMAL MORPHOLOGY (NORM)
[2019-01-23] MEDS: IPRATROPIUM/ALBUTEROL SULFATE 3 ML NEB NEB SCH ×4 (06:54→18:43)
[2019-01-23] MEDS ORDERED: FLUTICASONE INH SCH (09:00)
[2019-01-23] MEDS ORDERED: VILANTER INH SCH (09:00)
[2019-01-23] MEDS ORDERED: FENOFIBRATE PO SCH (09:00)
[2019-01-23] MEDS ORDERED: UMECLIDIN INH SCH (09:00)
--- NOTE | 2019-01-23 09:11 | PDOC(PROG) ---
Date of Service: 01/23/19 Time of Service: 09:00 Interval History: Subjective Patient feels a lot better he said compared to when he came in, his breathing is better. Cough is minimal. Objective : Data - Labs CBC and BMP: 01/23/19 04:38 01/22/19 10:55 Objective : Exam - General General Appearance: No Acute Distress, Cooperative - Head Head Exam: Normal Inspection - Eye Eye Exam: Normal Appearance - ENT ENT Exam: Normal Exam - Neck Neck Exam: Normal Inspection - Respiratory Additional Respiratory Exam Details: Decreased air entry otherwise clear - Cardiovascular Cardiovascular Exam: RRR - GI/Abdominal GI/Abdominal Exam: Normal Bowel Sounds, Non Tender, Non Distended, Soft, No Organomegaly - Rectal Rectal Exam: Deferred - External Exam: Deferred - Extremities Extremities Exam: Normal Inspection - Back Back Exam: Normal Inspection - Neurological Neurological Exam: Alert, Oriented x 3, CN II-XII Intact, No Facial Droop, Speech Intact / Clear, Moves All Extremities Equally - Psychiatric Psychiatric Exam: Normal Affect - Integumentary Integumentary Exam: Normal Color Assessment and Plan - Patient Problems (1) Aspiration pneumonia Current Visit: Yes Status: Acute Comment: Seem to be improving, continue Zosyn for another day, unfortunately we can't do modified barium study because of renovation. I think we can do the swallow evaluation at the bedside so hopefully he'll have it today. He still need to have a scope done for dysphagia and he was supposed to have it today with Dr. Low and then he ended up with a pneumonia. Code(s): J69.0 - Pneumonitis due to inhalation of food and vomit Qualifiers: Aspiration pneumonia type: unspecified Laterality: unspecified laterality Lung location: unspecified part of lung Qualified Code(s): J69.0 - Pneumonitis due to inhalation of food and vomit (2) Hyperlipidemia Current Visit: No Status: Chronic Comment: Same medication (3) COPD exacerbation Current Visit: No Status: Chronic Comment: This is secondary to pneumonia and seemed to be improving we'll cut back on the steroid and will stop his IV continue breathing treatment. Code(s): J44.1 - Chronic obstructive pulmonary disease with (acute) exacerbation
--- NOTE | 2019-01-23 15:06 | OT.PROG ---
Progress Note Progress Note: S: pt stated he lives her in town. He reported that a therapy girl joined him for lunch. O: pt was seen in his room in supine position. He sat up and completed exercises to strengthen throat/pharynx. Effortful swallow, Lelo and Casie all performed to increase strength of tognue, pharynx, & increase esopha geal opening. He performed each exercises x10 some some cues to complete. A: pt participated well with difficulty with casie manuever but eventually completed it fairly well. He may continue to benefit from these exercises and HEP of such exercises were left in his room. P: continue per POC.
--- NOTE | 2019-01-23 15:17 | OTI REPORT ---
Thank you for the referral of Mike Hess. He was seen on 01/23/19 for an occupational therapy swallow evaluation. SUBJECTIVE: The patient is a 78-year-old male who was admitted for pneumonia. The patient does report that this is the second bout of pneumonia in the last month. Previously he feels like he had pneumonia approximately six months ago also. The patient reports difficulty with swallowing and does feel like his pneumonia is being caused from all of his choking episodes. The patient reports that he cannot relate many of his choking episodes to any certain types of foods. He doesn't feel like the food actually goes down the trachea, but he does feel like he kind of slowly gets full in the throat to where he ends up coughing up a lot of food. He says it is anywhere from 1/2 a cup to 3/4 a cup worth of food. The patient reports he has felt like he has been having difficulty swallowing for the last couple of years, but he has only had the three bouts of pneumonia. The [place] . He does report for many years he has not had many teeth. He has no teeth on the top and only his front five teeth on the bottom. When he does eat, to chew he has to roll the food around to those front teeth. At this point the patient reports he eats all kinds of foods including raw vegetables, salad, bread, and steak and feels like he tries to get it chewed up as much as possible but sometimes has difficulty. He also reports that his says he eats too fast, often doing more of a shoveling technique rather than chewing and swallowing and then taking another bite. The patient does not report any previous strokes that would affect his swallowing. PAST MEDICAL HISTORY: Past medical history can be found in the patient's medical record. OBJECTIVE FINDINGS: Pre-Swallow Assessment: General observations: The patient was sitting upright edge of bed. Reliable responses: The patient is able to answer yes/no questions and is a fairy good historian. Facial symmetry: The patient has good facial symmetry. Tongue range of motion: The patient has good tongue motion to all sides and protrusion. Cough: The patient does have a weak cough, but he does have a history of COPD that might be flared up at this time. The patient is on steroids for this. Dentition: The patient does report for many years he has not had many teeth. He has no teeth on the top and only his front five teeth on the bottom. Gag reflex: The patient has a fair gag reflex. Feeding Assessment: We did start with water from a straw. The patient seemed to handle this okay with no gurgling afterward or obvious aspiration. The patient then moved on to pudding. The patient reports he does like pudding and likes to eat softer foods because he doesn't have to chew them. The patient then moved on to applesauce. Once again, the patient handled this texture well with no obvious aspiration or gurgling after eating. At this time the patient was asked to take a drink of water and he did so with no problems. The patient then moved on to diced peaches. The patient was able to chew the peaches and swallow them. The patient did seem to eat quite quickly and was asked to slow down and take a drink of water. The patient did start to sound full and a little gurgly, so he was asked to clear his throat which he was able to do without any obvious aspiration. The patient then moved on to meat and bread. The patient began with the meat, which was diced ham, and then moved on to the bread. The patient was once again cued to try to clear his throat and take a drink which he was able to do; however, the patient did seem a little gurgly after he cleared his throat. The patient ate a few more bites of meat and bread and was once again asked to clear his throat and take a drink of water. He did cough a bit and had to clear his throat more, which indicates he was possibly pooling and when he cleared his throat he moved that food out of the valleculae. It was recommended that the therapist sit with the patient at lunch to see how he does with a hamburger and hot dog. During lunch the patient did attempt the hot dog with the bread, but the skin was very tough and the patient verbalized that it was very hard to chew. The patient did seem to slightly aspirate on the hot dog. The patient cleared his throat and drank some water. We then tried the hamburger. The patient did put lettuce, onion, and tomato on the hamburger. After a few bites the patient seemed to become full and needed to clear his throat several times. When he did try to drink water at that point, he did have to cough and clear his throat more, demonstrating aspiration. The patient also had watermelon and grapes. The patient seemed to do okay with the fruit, but he did require several cues after a few bites to clear his throat and take a drink of water. Each time he did that he seemed to move food out of those pockets and aspirate a little bit. The patient was educated on a mechanical soft diet and he did agree to trying this. RECOMMENDATIONS: 1. The patient is okay on thin liquids, as long as he is good about clearing his throat and taking drinks several times throughout the meal and slowing down to eat with cues. 2. The therapist thinks the patient would benefit from swallow strengthening and a possible Vital-Stim evaluation as well as outpatient swallow therapy upon discharge. Swallow Goals: To be met by discharge from inpatient: Patient will tolerate a mechanical soft diet with no signs of aspiration 100% of the time. Patient will tolerate thin liquids with no signs of aspiration 100% of the time. Patient will remain upright after meals for 30 minutes to clear pockets and decrease his risk of aspiration post meals. TREATMENT PLAN: Patient will be seen for swallow strengthening to increase his strength one to two times a day until discharge. INITIAL TREATMENT: Treatment today consisted of the swallow evaluation only. RYLEY
[2019-01-23] MEDS: Pravastatin 80mg Tab PO SCH (21:00)
[2019-01-24] MEDS: Piperacillin/Tazobactam Inj 4.5 GM in Sodium Chloride 0.9% 100 ML IV SCH (04:18)
[2019-01-24] MEDS: methylPREDNISolone 40 MG/1 ML VIAL IVP SCH (04:18)
[2019-01-24 04:25] LABS: BASOPHILS # (AUTO) 0.02 10*3/UL; BASOPHILS % (AUTO) 0.1 % (0-1); EOSINOPHILS # (AUTO) 0 10*3/UL; EOSINOPHILS % (AUTO) 0 % (0-8); Hematocrit [HCT] 36.8 % (42.0-52.0); Hemoglobin [HGB] 11.9 g/dL (14.0-18.0); MEAN CORPUSCULAR HEMOGLOBIN 30.2 PG (27-31); MEAN CORPUSCULAR HGB CONC 32.3 g/dL (33-37); MEAN CORPUSCULAR VOLUME 93.4 FL (80-90); MEAN PLATELET VOLUME 9.2 FL (7.4-12.2); MONOCYTES # (AUTO) 0.62 10*3/UL (0.3-0.8); NEUTROPHILS # (AUTO) 14.12 10*3/UL; RED BLOOD COUNT 3.94 10^6/uL (4.70-6.10)
[2019-01-24 04:28] LABS: PLATELET MORPHOLOGY COMMENT NORMAL MORPHOLOGY (NORM); RBC MORPHOLOGY COMMENT NORMAL MORPHOLOGY (NORM); WBC MORPHOLOGY COMMENT NORMAL MORPHOLOGY (NORM)
[2019-01-24] MEDS: IPRATROPIUM/ALBUTEROL SULFATE 3 ML NEB NEB SCH ×2 (06:40→10:39)
--- NOTE | 2019-01-24 09:42 | PDOC(PROG) ---
Objective : Data - Labs CBC and BMP: 01/24/19 04:20 01/22/19 10:55 Assessment and Plan - Patient Problems (1) Aspiration pneumonia Current Visit: Yes Status: Acute Comment: We'll stop Invanz de-escalate to Rocephin and Flagyl IV CT scans reviewed. White count decreasing left shift still up could be from steroids overall patient is improving Code(s): J69.0 - Pneumonitis due to inhalation of food and vomit Qualifiers: Aspiration pneumonia type: unspecified Laterality: unspecified laterality Lung location: unspecified part of lung Qualified Code(s): J69.0 - Pneumonitis due to inhalation of food and vomit (2) COPD exacerbation Current Visit: No Status: Chronic Comment: Stop IV steroids will start prednisone by mouth 40 mg daily and inhale rs Code(s): J44.1 - Chronic obstructive pulmonary disease with (acute) exacerbation (3) Hyperlipidemia Current Visit: No Status: Chronic
[2019-01-24] MEDS ORDERED: predniSONE Tab 20 MG TAB PO SCH (09:45)
[2019-01-24] MEDS ORDERED: cefTRIAXone Inj 2 GM in Sodium Chloride 0.9% 100 ML IV SCH (10:00)
[2019-01-24] MEDS ORDERED: metroNIDAZOLE 500mg (Premix) 500 MG/100 ML BAG IV SCH (11:00)
[2019-01-24 11:45] VITALS: BP 132/59; RESP 20; TEMP 97.2; O2SAT 90
--- NOTE | 2019-01-24 11:45 | DCSUMMARY ---
Hospitalization Summary Hospital Course: Final Discharge Diagnosis: Current Visit Problems Problem Status Onset Code Aspiration pneumonia Acute J69.0 Diagnostic Data, Laboratory Data, and Procedures of Signifigance: CBC and BMP 01/24/19 04:20 01/22/19 10:55 History and Physical pertinent to Admission: Course of Hospitalization: This very nice [id number] gentleman admitted for pneumonia most likely aspiration he did have a swallow study conducted by [facility]. He was recommended some softer food. He is on chronic oxygen at home he is been receiving Invanz as pneumonia is improved he feels back to his normal self on physical exams his lungs sound clear. He is requesting to be discharged home he said he really needs to be going home I told him that his white count still 15,000 but better from from what was also on chronic steroids. He has no fever does not look septic patient is begging to be discharged home I told him I will discharge home considering his lungs are clear he is no fever and his vitals are stable he will be treated with Augmentin and Flagyl he will follow-up with [facility] on Saturday for further speech therapy and recommendations. Patient very happy he will go back to the ER if he continues to get worse On the date of discharge, the patient was examined: Gen.: No acute distress, alert, nontoxic Heart: Regular rate and rhythm, no murmurs, clicks, gallops, or rubs Lungs: Clear to auscultation bilaterally, breathing is nonlabored Abdomen/GI: Normal tones on auscultation, soft, nontender, nondistended Musculoskeletal/extremities: No clubbing, cyanosis, or edema Vitals reviewed and are listed below Vital Signs (24 hrs) 01/23/19 15:00 01/23/19 15:05 01/23/19 15:06 Temperature Pulse Rate 98 97 99 Pulse Rate [Pulse Oximeter] Pulse Rate [telemetry] 90 Respiratory Rate 20 20 Blood Pressure [Left Arm] Pulse Ox 90 Pulse Ox [telemetry] 91 01/23/19 16:27 01/23/19 16:32 01/23/19 18:43 Temperature 97.6 F Pulse Rate 103 H Pulse Rate [Pulse Oximeter] 101 H Pulse Rate [telemetry] 100 Respiratory Rate 20 18 Blood Pressure [Left Arm] 153/58 Pulse Ox 91 93 Pulse Ox [telemetry] 93 01/23/19 18:44 01/23/19 19:00 01/23/19 19:55 Temperature 98.0 F Pulse Rate 100 100 Pulse Rate [Pulse Oximeter] 107 H Pulse Rate [telemetry] 107 H Respiratory Rate 16 20 Blood Pressure [Left Arm] 159/69 Pulse Ox 92 Pulse Ox [telemetry] 95 92 01/23/19 23:00 01/23/19 23:34 01/24/19 01:00 Temperature 98.5 F Pulse Rate 106 H Pulse Rate [Pulse Oximeter] 107 H Pulse Rate [telemetry] 103 H 89 Respiratory Rate 20 Blood Pressure [Left Arm] 180/74 Pulse Ox 93 Pulse Ox [telemetry] 94 94 01/24/19 03:00 01/24/19 04:45 01/24/19 05:18 Temperature 98.0 F Pulse Rate 80 Pulse Rate [Pulse Oximeter] 79 Pulse Rate [telemetry] 80 Respiratory Rate 21 Blood Pressure [Left Arm] 134/67 Pulse Ox 91 95 Pulse Ox [telemetry] 92 91 01/24/19 06:40 01/24/19 06:41 01/24/19 07:00 Temperature Pulse Rate 83 84 93 Pulse Rate [Pulse Oximeter] 75 Pulse Rate [telemetry] 87 Respiratory Rate 20 20 22 Blood Pressure [Left Arm] Pulse Ox 93 Pulse Ox [telemetry] 90 01/24/19 07:01 01/24/19 09:00 01/24/19 10:39 Temperature 97 F Pulse Rate 94 Pulse Rate [Pulse Oximeter] 75 Pulse Rate [telemetry] 75 Respiratory Rate 22 18 Blood Pressure [Left Arm] 167/75 Pulse Ox 90 94 Pulse Ox [telemetry] 90 01/24/19 10:40 01/24/19 10:47 01/24/19 11:43 Temperature 97.2 F Pulse Rate 92 96 Pulse Rate [Pulse Oximeter] 107 H Pulse Rate [telemetry] 75 Respiratory Rate 18 20 Blood Pressure [Left Arm] 132/59 Pulse Ox 90 Pulse Ox [telemetry] 90 Assessment and Plan: 1. As per discharge assessments above 2. Disposition: Home 3. Condition on discharge, stable and improved. 4. Diet: regular diet 5. Activities: resume normal activities 6. Follow-Up: 1. PCP 2. 7. Medications at the Time of Discharge: Home Medications Medication Instructions Recorded Confirmed Oxygen (O2) 3 l NASAL continous #3 unit 03/02/13 01/22/19 azelastine 137 mcg (0.1 %) nasal 1 spray INASL BID #30 ml 09/17/18 01/22/19 spray aerosol fluticasone fur. 100 mcg-umeclid 1 inh INH QDAY #28 ea 10/22/18 01/22/19 62.5 mcg-vilant 25 mcg inhalat.powder pravastatin 80 mg tablet 80 mg PO QHS #90 tab 11/10/18 01/22/19 fenofibrate nanocrystallized 48 mg 48 mg PO QDAY #90 tab 11/26/18 01/22/19 tablet Imipramine HCl 2 tab PO BID 01/08/19 01/22/19 Levalbuterol Tartrate XOPENEX HFA 2 puff INHALATION Q4H PRN 01/08/19 01/22/19 Amoxicill/Clav 875/125mg 1 each PO BID #20 tablet 01/24/19 Augmentin 875/125mg metroNIDAZOLE Tab Flagyl Tab 500 mg PO Q8H #30 tab 01/24/19 8. Time, care, counseling and coordination of care for this discharge is greater than 30 minutes. Exam - Vitals Vital Signs: Vital Signs Temperature 97 F Temperature Source Temporal Artery Scan Pulse Rate [Pulse Oximeter] 75 Pulse Rate [telemetry] 75 Pulse Rate 96 Respiratory Rate 18 Blood Pressure [Left Arm] 167/75 Blood Pressure 160/78 Pulse Ox [telemetry] 90 Pulse Ox 94 Oxygen Flow Rate [telemetry] 4.5L Oxygen Flow Rate 4.5 Oxygen Delivery Method [ Nasal Cannula telemetry] Oxygen Delivery Method Nasal Cannula Height 5 ft 10 in Weight 210 lb Patient Problems - Patient Problem List (1) Aspiration pneumonia Status: Acute Code(s): J69.0 - Pneumonitis due to inhalation of food and vomit Qualifiers: Aspiration pneumonia type: unspecified Laterality: unspecified laterality Lung location: unspecified part of lung Qualified Code(s): J69.0 - Pneumonitis due to inhalation of food and vomit Category: Medical (2) COPD exacerbation Status: Chronic Code(s): J44.1 - Chronic obstructive pulmonary disease with (acute) exacerbation Category: Medical (3) Hyperlipidemia Status: Chronic Category: Medical
== END 2019-01-24 12:36 | disposition home or self-care (01) | DRG 178 ==
LOC: ER 10:57 → MED/SURG 14:23
PROVIDERS: ADMIT Internal Medicine; ATTEND Internal Medicine

== ENCOUNTER 2019-07-22 20:13 | Inpatient (IN) ==
[2019-07-22 21:03] LABS: BASOPHILS # (AUTO) 0.03 10*3/UL; BASOPHILS % (AUTO) 0.2 % (0-1); EOSINOPHILS # (AUTO) 0.24 10*3/UL; EOSINOPHILS % (AUTO) 1.2 % (0-8); Hematocrit [HCT] 43.9 % (42.0-52.0); LYMPHOCYTES # (AUTO) 1.03 10*3/uL; MEAN CORPUSCULAR HGB CONC 29.6 g/dL (33-37); MEAN CORPUSCULAR VOLUME 88.9 FL (80-90); MEAN PLATELET VOLUME 9.4 FL (7.4-12.2); MONOCYTES # (AUTO) 1.11 10*3/UL (0.3-0.8); MONOCYTES % (AUTO) 5.6 % (5-15); NEUTROPHILS # (AUTO) 17.34 10*3/UL; NEUTROPHILS % (AUTO) 87.5 % (50-80); RED BLOOD COUNT 4.94 10^6/uL (4.70-6.10)
[2019-07-22 21:04] LABS: PLATELET MORPHOLOGY COMMENT NORMAL MORPHOLOGY (NORM); RBC MORPHOLOGY COMMENT NORMAL MORPHOLOGY (NORM); WBC MORPHOLOGY COMMENT NORMAL MORPHOLOGY (NORM)
[2019-07-22 21:08] LABS: BLOOD UREA NITROGEN 35 mg/dL (7-22); SERUM ALBUMIN 4.2 g/dL (3.5-4.8)
[2019-07-22] MEDS ORDERED: cefTRIAXone Inj 1 GM in Sodium Chloride 0.9% 100 ML IV ONE (21:21)
[2019-07-22] MEDS ORDERED: methylPREDNISolone Succ Inj 125 MG in Sodium Chloride 0.9% 50 ML IV ONE (21:22)
[2019-07-22] MEDS ORDERED: IPRATROPIUM/ALBUTEROL SULFATE 3 ML NEB NEB ONE (21:22)
[2019-07-22] MEDS ORDERED: Sodium Chloride 0.9% 1,000 ML PRIMARY IV ONE (22:23)
[2019-07-22] MEDS ORDERED: metroNIDAZOLE 500mg (Premix) 500 MG/100 ML BAG IV ONE (22:25)
[2019-07-23] MEDS ORDERED: ALBUTEROL SULFATE 2.5 MG/3 ML NEB PRN (00:46)
[2019-07-23] MEDS ORDERED: LIDOCAINE W/ SODIUM BICARB 0.5 ML SYR SUBD PRN (00:46)
[2019-07-23] MEDS ORDERED: OXYGEN NASAL SCH (00:46)
[2019-07-23] MEDS ORDERED: HYDROcodone-APAP 5 MG -325 MG TABLET PO PRN (00:46)
[2019-07-23] MEDS ORDERED: LEVALBUTEROL TARTRATE INH PRN (00:46)
[2019-07-23] MEDS: AZELASTINE HCL ENOS SCH ×2 (01:08→10:01)
[2019-07-23] MEDS: METFORMIN PO SCH ×2 (01:08→08:29)
[2019-07-23] MEDS: ERTUGLIFLOZIN PO SCH ×2 (01:08→08:29)
[2019-07-23] MEDS: IMIPRAMINE HCL 25 MG PO SCH ×2 (01:08→08:30)
[2019-07-23] MEDS: methylPREDNISolone 125 MG/2 ML VIAL IVP SCH ×2 (01:09→08:33)
[2019-07-23] MEDS: GUAIFENESIN 600 MG TABLET PO SCH ×2 (01:18→08:28)
[2019-07-23 05:29] LABS: BASOPHILS # (AUTO) 0.01 10*3/UL; BASOPHILS % (AUTO) 0.1 % (0-1); EOSINOPHILS # (AUTO) 0.01 10*3/UL; EOSINOPHILS % (AUTO) 0.1 % (0-8); Hematocrit [HCT] 36.7 % (42.0-52.0); Hemoglobin [HGB] 10.9 g/dL (14.0-18.0); LYMPHOCYTES # (AUTO) 0.34 10*3/uL; MEAN CORPUSCULAR HGB CONC 29.7 g/dL (33-37); MEAN CORPUSCULAR VOLUME 89.1 FL (80-90); MEAN PLATELET VOLUME 9.2 FL (7.4-12.2); MONOCYTES # (AUTO) 0.11 10*3/UL (0.3-0.8); MONOCYTES % (AUTO) 1.1 % (5-15); NEUTROPHILS # (AUTO) 9.19 10*3/UL; NEUTROPHILS % (AUTO) 94.9 % (50-80); RED BLOOD COUNT 4.12 10^6/uL (4.70-6.10)
[2019-07-23 05:33] LABS: BLOOD UREA NITROGEN 32 mg/dL (7-22)
[2019-07-23 05:42] LABS: PLATELET MORPHOLOGY COMMENT NORMAL MORPHOLOGY (NORM); RBC MORPHOLOGY COMMENT NORMAL MORPHOLOGY (NORM); WBC MORPHOLOGY COMMENT NORMAL MORPHOLOGY (NORM)
[2019-07-23] MEDS ORDERED: FENOFIBRATE NANOCRYSTALLIZED 48 MG PO SCH (09:00)
[2019-07-23] MEDS ORDERED: VILANTER INH SCH (09:00)
[2019-07-23] MEDS ORDERED: FLUTICASONE INH SCH (09:00)
[2019-07-23] MEDS ORDERED: UMECLIDIN INH SCH (09:00)
[2019-07-23 09:48] VITALS: BP 116/53; RESP 20; TEMP 98.6
[2019-07-23] MEDS ORDERED: cefTRIAXone Inj 2 GM in Sodium Chloride 0.9% 100 ML IV ONE (11:26)
[2019-07-23] MEDS ORDERED: methylPREDNISolone Succ Inj 125 MG in Sodium Chloride 0.9% 50 ML IV ONE (11:26)
[2019-07-23 12:21] VITALS: O2SAT 92
[2019-07-23] MEDS ORDERED: Pravastatin 80mg Tab PO SCH (21:00)
[2019-07-23] MEDS ORDERED: cefTRIAXone Inj 2 GM in Sodium Chloride 0.9% 100 ML IV SCH (21:30)
[2019-07-24] MEDS ORDERED: AZITHROMYCIN 250 MG TABLET PO SCH (21:30)
== END 2019-07-23 13:54 | disposition home or self-care (01) | DRG 192 ==
LOC: ER 20:13 → MED/SURG 07-23 00:35
PROVIDERS: ADMIT Internal Medicine; ATTEND Internal Medicine